=== PATIENT | male | born 1960 ===

== ENCOUNTER 2017-03-28 12:31 | Inpatient (IN) | payer BC ==
[~2017-03-28] VITALS: Ht 167.6 cm; Wt 127.1 kg
--- NOTE | 2017-03-28 12:55 | ER Report ---
History and Physical Time Seen By MD: 12:55 Hx. 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 Patient states that he's been having problems past 4 weeks. He states he tried [id number] medications to help with this but nothing seems to help. Patient denies having any fevers, chills, nausea, vomiting or diarrhea. Patient states that he's been eating and drinking well until recently. States that he's been feeling very weak for the last couple days. He states everything to get worse when he arrived in [place]. He states that time he got here to [place] that he needed to stop and be checked out. He states that aside from the over- the-counter medication has not taken any medication for this. REVIEW OF SYSTEMS: Respiratory: As noted above Cardiovascular: No chest pain, no palpitations. Gastrointestinal: No vomiting, no abdominal pain. Musculoskeletal: No back pain. Allergies: Coded Allergies: No Known Drug Allergies (Unverified , 03/28/17) Home Meds Unable to Obtain Active Prescriptions or Reported Meds Past Medical/Surgical History Patient has a past medical history of hypertension, COPD, diabetes. Patient has surgical history of left fifth finger surgery. Reviewed Nurses Notes: Yes Constitutional Vital Sign - Last 24 Hours 03/28/17 03/28/17 03/28/17 03/28/17 12:36 12:39 12:39 12:40 Temp 98.5 Pulse 124 124 Resp 40 B/P (MAP) 155/141 (146) 121/92 121/92 (102) Pulse Ox 66 66 72 O2 Delivery Room Air O2 Flow Rate 15.0 03/28/17 03/28/17 03/28/17 03/28/17 12:41 12:46 12:51 12:52 Pulse 119 118 119 Pulse Ox 94 94 95 O2 Flow Rate 3.0 03/28/17 03/28/17 03/28/17 03/28/17 12:56 13:00 13:01 13:04 Pulse 122 122 120 B/P (MAP) 108/87 (94) Pulse Ox 91 91 03/28/17 03/28/17 03/28/17 03/28/17 13:04 13:06 13:11 13:21 Pulse 119 120 119 Pulse Ox 91 91 93 O2 Delivery Nasal Cannula O2 Flow Rate 4.0 03/28/17 03/28/17 03/28/17 03/28/17 13:51 13:56 14:30 15:00 Pulse 121 124 Resp 31 14 B/P (MAP) 114/71 (85) 106/72 (83) Pulse Ox 92 91 03/28/17 03/28/17 03/28/17 03/28/17 15:30 15:35 15:57 16:00 Pulse ??? 110 B/P (MAP) 114/74 (87) 119/75 (90) Pulse Ox 92 03/28/17 03/28/17 03/28/17 03/28/17 16:30 16:35 16:40 16:45 Pulse ??? 116 112 B/P (MAP) 122/53 (76) Pulse Ox 86 89 03/28/17 03/28/17 03/28/17 03/28/17 16:49 16:50 16:55 17:00 Pulse 111 110 109 106 B/P (MAP) 108/69 (82) Pulse Ox 92 91 92 91 Intake and Output 03/28/17 03/28/17 03/29/17 15:00 23:00 07:00 Intake Total 500 ml Balance 500 ml Physical Exam General Appearance: The patient is alert, has no immediate need for airway protection and no current signs of toxicity. ENT: Tympanic membranes are pearly-servin, auditory canals are patent, mucous membranes are moist. Respiratory: Chest is non tender, lungs are dense throughout to auscultation. Cardiac: regular rhythm. Patient is tachycardic. Gastrointestinal: Abdomen is soft and non tender, no masses, bowel sounds normal. Musculoskeletal: Neck: Neck is supple and non tender. Extremities have full range of motion and are non tender. Skin: No rashes or lesions. DIFFERENTIAL DIAGNOSIS: After history and physical exam differential diagnosis was considered for influenza, pneumonia, sepsis, pulmonary embolism. Medical Decision Making Data Points Result Diagram: 03/28/17 1304 03/28/17 1304 Laboratory Hematology Test 03/28/17 13:04 Red Blood Count 6.76 M/uL (4.00-5.60) Mean Corpuscular Volume 88.7 fL (80.0-96.0) Mean Corpuscular Hemoglobin 28.3 pg (26.0-33.0) Mean Corpuscular Hemoglobin Concent 31.9 g/dL (32.0-36.0) Red Cell Distribution Width 17.1 % (11.5-14.5) Mean Platelet Volume 8.0 fL (7.2-11.1) Neutrophils (%) (Auto) 75.5 % (39.4-72.5) Lymphocytes (%) (Auto) 16.2 % (17.6-49.6) Monocytes (%) (Auto) 7.1 % (4.1-12.4) Eosinophils (%) (Auto) 0.6 % (0.4-6.7) Basophils (%) (Auto) 0.6 % (0.3-1.4) Nucleated RBC Relative Count (auto) 0.1 /100WBC Neutrophils # (Auto) 8.1 K/uL (2.0-7.4) Lymphocytes # (Auto) 1.7 K/uL (1.3-3.6) Monocytes # (Auto) 0.8 K/uL (0.3-1.0) Eosinophils # (Auto) 0.1 K/uL (0.0-0.5) Basophils # (Auto) 0.1 K/uL (0.0-0.1) Nucleated RBC Absolute Count (auto) 0.01 K/uL D-Dimer Quantitative (PE/DVT) 1.03 ug/ml (0-0.50) Sodium Level 135 mmol/L (137-145) Potassium Level 5.3 mmol/L (3.5-5.0) Chloride Level 94 mmol/L (98-107) Carbon Dioxide Level 29 mmol/L (22-30) Blood Urea Nitrogen 39 mg/dl (9-21) Creatinine 1.70 mg/dl (0.66-1.25) Glomerular Filtration Rate Calc 41.9 Random Glucose 242 mg/dl (75-110) Lactate 3.4 mmol/L (0.7-2.1) Calcium Level 9.7 mg/dl (8.4-10.2) Total Bilirubin 0.8 mg/dl (0.2-1.3) Aspartate Amino Transf (AST/SGOT) 20 U/L (0-35) Alanine Aminotransferase (ALT/SGPT) 39 U/L (0-56) Alkaline Phosphatase 110 U/L (0-126) Troponin I 0.019 ng/ml B-Type Natriuretic Peptide 84 pg/ml (0-100) Total Protein 6.8 gm/dl (6.3-8.2) Albumin 3.5 g/dl (3.5-5.0) Influenza Virus Type A (PCR) Negative (NEGATIVE) Influenza Virus Type B (PCR) Negative (NEGATIVE) Chemistry Test 03/28/17 13:04 White Blood Count 10.8 k/uL (4.5-11.0) Red Blood Count 6.76 M/uL (4.00-5.60) Hemoglobin 19.1 g/dL (14.0-18.0) Hematocrit 59.9 % (42.0-52.0) Mean Corpuscular Volume 88.7 fL (80.0-96.0) Mean Corpuscular Hemoglobin 28.3 pg (26.0-33.0) Mean Corpuscular Hemoglobin Concent 31.9 g/dL (32.0-36.0) Red Cell Distribution Width 17.1 % (11.5-14.5) Platelet Count 283 K/uL (150-450) Mean Platelet Volume 8.0 fL (7.2-11.1) Neutrophils (%) (Auto) 75.5 % (39.4-72.5) Lymphocytes (%) (Auto) 16.2 % (17.6-49.6) Monocytes (%) (Auto) 7.1 % (4.1-12.4) Eosinophils (%) (Auto) 0.6 % (0.4-6.7) Basophils (%) (Auto) 0.6 % (0.3-1.4) Nucleated RBC Relative Count (auto) 0.1 /100WBC Neutrophils # (Auto) 8.1 K/uL (2.0-7.4) Lymphocytes # (Auto) 1.7 K/uL (1.3-3.6) Monocytes # (Auto) 0.8 K/uL (0.3-1.0) Eosinophils # (Auto) 0.1 K/uL (0.0-0.5) Basophils # (Auto) 0.1 K/uL (0.0-0.1) Nucleated RBC Absolute Count (auto) 0.01 K/uL D-Dimer Quantitative (PE/DVT) 1.03 ug/ml (0-0.50) Glomerular Filtration Rate Calc 41.9 Lactate 3.4 mmol/L (0.7-2.1) Calcium Level 9.7 mg/dl (8.4-10.2) Total Bilirubin 0.8 mg/dl (0.2-1.3) Aspartate Amino Transf (AST/SGOT) 20 U/L (0-35) Alanine Aminotransferase (ALT/SGPT) 39 U/L (0-56) Alkaline Phosphatase 110 U/L (0-126) Troponin I 0.019 ng/ml B-Type Natriuretic Peptide 84 pg/ml (0-100) Total Protein 6.8 gm/dl (6.3-8.2) Albumin 3.5 g/dl (3.5-5.0) Influenza Virus Type A (PCR) Negative (NEGATIVE) Influenza Virus Type B (PCR) Negative (NEGATIVE) Coagulation Test 03/28/17 13:04 D-Dimer Quantitative (PE/DVT) 1.03 ug/ml EKG/Imaging EKG Interpretation 12 lead EKG: Rhythm: Sinus tachycardia with ventricular rate of 117 bpm [place]: Right axis deviation QRS: Incomplete right bundle branch block ST segments: normal Imaging EXAMINATION: Chest radiographs 2 views HISTORY: Respiratory distress. COMPARISON: None. FINDINGS: PA and lateral views of the chest are submitted. Lines/tubes: None. Lungs/pleura: There is near-complete opacification of the left hemithorax with apical cap. There is tapering of the left mainstem bronchus. Right lung is clear. Heart: Negative. Mediastinum: There is no mediastinal shift. Bony structures/body wall: Negative. IMPRESSION: Near-complete opacification of the left hemithorax could be due to pneumonia or lung mass, with associated pleural effusion. Report Dictated By: Neena Martinez MD at 03/28/2017 2:12 PM Report E-Signed By: Neena Martinez MD at 03/28/2017 2:14 PM EXAMINATION: CTA of the chest with IV contrast HISTORY: Shortness of breath. Elevated d-dimer. TECHNIQUE: Pulmonary embolus protocol - Thin axial CT images of the chest were obtained with IV contrast during maximal pulmonary arterial opacification. Reconstruction of the source data includes multiplanar 2D coronal and sagittal reconstructed images, and 3D coronal and sagittal MIP images. [employer] images have been stored on PACS. One of the following dose optimization techniques was utilized in the performance of this exam: Automated exposure control; adjustment of the mA and/ or kV according to the patient's size; or use of an iterative reconstruction technique. Specific details can be referenced in the facility's radiology CT exam operational policy. Contrast: 100 mL of IV Isovue-370. COMPARISON: Chest radiograph of earlier today. FINDINGS: Pulmonary arteries: The pulmonary arteries are well opacified, without suspicious filling defect. Heart, aorta, and great vessels: Normal caliber thoracic aorta, without aneurysm or dissection. Normal heart size. No pericardial effusion. Lungs and pleura: There is near-complete consolidation of the left lung. The lower lobe and lingula appear atelectatic with volume loss and normal parenchymal enhancement. The consolidated left upper lobe however is more heterogeneous in appearance with decreased parenchymal enhancement. There is ill -defined soft tissue attenuation along the left hilum and central aspect of the left upper lobe, suspicious for an obstructing mass lesion. Margins are poorly defined, obscured against the adjacent consolidated lung. The left mainstem bronchus is significantly narrowed by soft tissue attenuation or intraluminal material. There is nonopacification of the lobar and segmental bronchi to the upper and lower lobes which could be occluded by intraluminal material or soft tissue. There is only a small amount of aerated left upper lobe superiorly. There is a large left pleural effusion surrounding the consolidated left lung. The right lung is clear. No focal consolidation on the right. Right-sided airways are patent. No pleural effusion on the right side. Mediastinum and cisco: There is ill-defined soft tissue attenuation extending along the left hilum, suspicious for malignancy. There are scattered subcentimeter lymph nodes elsewhere in the mediastinum and right hilum, without any well-defined isolated enlarged lymph nodes. Visualized upper abdomen: Unremarkable. Chest wall: Negative. Bones: No acute osseous findings or suspicious focal osseous lesions. IMPRESSION: 1. No evidence of pulmonary embolism. 2. There is near-complete consolidation of the left lung. There is heterogeneous soft tissue attenuation in the central aspect of the left upper lobe extending to the hilum, concerning for an underlying mass lesion. This is poorly defined and partially obscured by surrounding pulmonary consolidation, which precludes accurate size measurement. Findings overall are concerning for malignancy with a likely component of postobstructive pneumonitis. Bronchoscopy could be performed for further evaluation and potential tissue sampling. 3. Large left pleural effusion surrounding the consolidated left lung. 4. The right lung is clear. Findings were discussed with SAMUEL RAMOS at 03/28/2017 2:46 PM. Report Dictated By: Iván Pitt MD at 03/28/2017 2:31 PM Report E-Signed By: Iván Pitt MD at 03/28/2017 2:47 PM Examination: CHEST SINGLE AP Comparison: Earlier the same day. History: Post-thoracentesis. Findings: Significantly decreased left pleural effusion following thoracentesis. Left lung aeration is significantly improved with persistent patchy consolidation versus volume loss. Mild peribronchial thickening as before. No pneumothorax. Visualized portions of the cardiac and hilar contour are within normal limits. Osseous structures are intact. IMPRESSION: 1. Significantly decreased left pleural effusion following thoracentesis. 2. Improved left lung aeration with residual multifocal volume loss versus consolidation. Continued follow-up to document complete resolution and exclude the presence of an underlying mass is recommended. 3. No pneumothorax. Report Dictated By: Rafael De Anda MD at 03/28/2017 6:00 PM Report E-Signed By: Rafael De Anda MD at 03/28/2017 6:02 PM ED Course/Re-evaluation ED Course Patient was admitted exam room, history and physical were obtained. Differential diagnoses were considered. On examination lungs are extremely diminished in left lung. A CBC, CMP, troponin, EKG, chest x-ray were done. Chest x-ray shows considerable consolidation in the left lung. CBC showed no elevated white count, CMP showed creatinine of 1.7, elevated potassium of 5.3. A d-dimer was done which was 1.04. A CT pulmonary angiogram was done. That showed no pulmonary emboli, however did show a perihilar mass in the left lung which is compressing on the left mainstem bronchus and large pleural effusion. I discussed the case with pulmonology at [facility]. She states that patient should follow-up for bronchoscopy in [place]. She states that if the pleural effusion was large enough that we could go ahead and drain it. I discussed the case with Dr. Letty Decker, hospitalist, who felt that there is nothing we can be done at the hospital here. I spoke with Dr. Leonardo , dental surgeon, who said that he could drain it but was unsure if that would help. Patient was evaluated by Dr. Cook, ER physician, who then spoke with Dr. Leonardo. Dr. Leonardo said that if the hospitalist would admit he would be more than happy to come in and do a pleurocentesis. I spoke with Dr. Letty Decker who agreed to accept the patient for admission. Dr. Leonardo did come in and performed the pleurocentesis. Patient was admitted to the floor under the care of Dr. Letty Decker. Patient verbalized understanding and agreement with plan. 03/28/2017 3:23:26 pm discussed the findings with patient, patient states that he would prefer to continue with his trip. I will go ahead and discuss with pulmonology whether this would be a crowley move. Patient is satting well on 4 L of oxygen, could possibly get him set up with home oxygen and follow-up in [place] on his return. Decision to Disposition Date: Mar 28, 2017 Decision to Disposition Time: 18:00 Depart Departure Latest Vital Signs Vital Signs Date Time Temp Pulse Resp B/P (MAP) Pulse Ox O2 Delivery O2 Flow Rate FiO2 03/28/17 17:00 106 108/69 (82) 91 03/28/17 13:56 14 03/28/17 13:04 Nasal Cannula 4.0 03/28/17 12:39 98.5 Impression: Primary Impression: Pulmonary consolidation determined by examination Additional Impressions: Pleural effusion Hypoxia Condition: Condition Unchanged Disposition: Admitted from ER New Scripts Unable to Obtain Active Prescriptions or Reported Meds Departure Forms: ER Transition Record, Home Oxygen, Nebulizer RX, Home Oxygen Company Chosen by Patient: [employer] Medical Equipment-Oxygen: Oxygen Concentrator, Portable Oxygen Gas Reason for Use/Diagnosis: Pleural effusion, left lung consolidation, hypoxia Start Date of the Order: Mar 28, 2017 Dosage or Concentration (if applicable) - LPM: 4 Route of Administration (if applicable): Nasal Cannula Frequency of Use: Continuous Duration Home O2 Required: 99 Duration Units: Months Room Air Oxygen Saturation: 66 ER Prescribing Physician's Name: Samuel Ramos NPI Numbers for Local ER MDs: Richard [id number] Medications Reconciliation, Patient Portal Information Problem Qualifiers SAMUEL RAMOS Mar 28, 2017 12:55
[2017-03-28] MEDS ORDERED: NS(*) 0.9% 1000 ML BAG 1,000 ML IV ONE (13:01)
[2017-03-28] MEDS ORDERED: ALBUTEROL/IPRATROPIUM 3 ML NEB NEB ONE (13:05)
[2017-03-28 13:10] LABS: PLATELET COUNT, AUTOMATED 283 K/uL (150-450)
--- NOTE | 2017-03-28 13:30 | EKG ---
FACILITY: [facility] PATIENT NAME: SRUTHI SINGH : [id number] MR: [id number] V: [id number] EXAM DATE: ORDERING PHYSICIAN: YARELI MENESES TECHNOLOGIST: GABY Keyes Reason : SOB Blood Pressure : / mmHG Vent. Rate : 117 BPM Atrial Rate : 117 BPM P-R Int : 104 ms QRS Dur : 098 ms QT Int : 444 ms P-R-T Axes : 000 123 050 degrees QTc Int : 619 ms Sinus tachycardia Right axis deviation Incomplete right bundle branch block Right ventricular hypertrophy Abnormal ECG No previous ECGs available Confirmed by GUY ROMAN ([id number]) on 03/28/2017 8:20:09 PM Referred By: ESTEBAN Confirmed By:GUY ROMAN
[2017-03-28] MEDS ORDERED: IOPAMIDOL 76% 100 ML INFUS BTL 100 ML ONE (13:48)
[2017-03-28] MEDS ORDERED: NS 0.9% 20 ML SDV 60 ML ONE (13:49)
--- NOTE | 2017-03-28 14:18 | RADIOLOGY IMAGING REPORT ---
FACILITY: [facility] [place] PATIENT NAME: Sylvia Blackwood : 1960 MR: [id number] V: [id number] EXAM DATE: ORDERING PHYSICIAN: YARELI MENESES TECHNOLOGIST: Location: [facility] [place] Patient: Sylvia Blackwood : 1960 Visit/Account:[id number] Date of Sevice: 03/28/2017 EXAMINATION: Chest radiographs 2 views HISTORY: Respiratory distress. COMPARISON: None. FINDINGS: PA and lateral views of the chest are submitted. Lines/tubes: None. Lungs/pleura: There is near-complete opacification of the left hemithorax with apical cap. There is tapering of the left mainstem bronchus. Right lung is clear. Heart: Negative. Mediastinum: There is no mediastinal shift. Bony structures/body wall: Negative. IMPRESSION: Near-complete opacification of the left hemithorax could be due to pneumonia or lung mass, with assoc iated pleural effusion. Report Dictated By: Neena Martinez MD at 03/28/2017 2:12 PM Report E-Signed By: Neena Martinez MD at 03/28/2017 2:14 PM WSN:[id number]
--- NOTE | 2017-03-28 14:51 | RADIOLOGY IMAGING REPORT ---
[place] [facility] [place] Sylvia Blackwood : 1960 MR: [id number] V: [id number] EXAM DATE: ORDERING PHYSICIAN: YARELI MENESES TECHNOLOGIST: Location: [facility] [place] Patient: Sylvia Blackwood : 1960 Visit/Account:[id number] Date of Sevice: 03/28/2017 EXAMINATION: CTA of the chest with IV contrast HISTORY: Shortness of breath. Elevated d-dimer. TECHNIQUE: Pulmonary embolus protocol - Thin axial CT images of the chest were obtained with IV con trast during maximal pulmonary arterial opacification. Reconstruction of the source data includes mul tiplanar 2D coronal and sagittal reconstructed images, and 3D coronal and sagittal MIP images. Repres entative images have been stored on PACS. One of the following dose optimization techniques was utilized in the performance of this exam: Autom ated exposure control; adjustment of the mA and/or kV according to the patient's size; or use of an i terative reconstruction technique. Specific details can be referenced in the facility's radiology C T exam operational policy. Contrast: 100 mL of IV Isovue-370. COMPARISON: Chest radiograph of earlier today. FINDINGS: Pulmonary arteries: The pulmonary arteries are well opacified, without suspicious filling defect. Heart, aorta, and great vessels: Normal caliber thoracic aorta, without aneurysm or dissection. Norm al heart size. No pericardial effusion. Lungs and pleura: There is near-complete consolidation of the left lung. The lower lobe and lingula appear atelectatic with volume loss and normal parenchymal enhancement. The consolidated left upper l obe however is more heterogeneous in appearance with decreased parenchymal enhancement. There is ill- defined soft tissue attenuation along the left hilum and central aspect of the left upper lobe, suspi cious for an obstructing mass lesion. Margins are poorly defined, obscured against the adjacent conso lidated lung. The left mainstem bronchus is significantly narrowed by soft tissue attenuation or intraluminal mater ial. There is nonopacification of the lobar and segmental bronchi to the upper and lower lobes which could be occluded by intraluminal material or soft tissue. There is only a small amount of aerated le ft upper lobe superiorly. There is a large left pleural effusion surrounding the consolidated left anatoly ng. The right lung is clear. No focal consolidation on the right. Right-sided airways are patent. No pleu ral effusion on the right side. Mediastinum and cisco: There is ill-defined soft tissue attenuation extending along the left hilum, s uspicious for malignancy. There are scattered subcentimeter lymph nodes elsewhere in the mediastinum and right hilum, without any well-defined isolated enlarged lymph nodes. Visualized upper abdomen: Unremarkable. Chest wall: Negative. Bones: No acute osseous findings or suspicious focal osseous lesions. IMPRESSION: 1. No evidence of pulmonary embolism. 2. There is near-complete consolidation of the left lung. There is heterogeneous soft tissue attenuat ion in the central aspect of the left upper lobe extending to the hilum, concerning for an underlying mass lesion. This is poorly defined and partially obscured by surrounding pulmonary consolidation, w hich precludes accurate size measurement. Findings overall are concerning for malignancy with a likel y component of postobstructive pneumonitis. Bronchoscopy could be performed for further evaluation an d potential tissue sampling. 3. Large left pleural effusion surrounding the consolidated left lung. 4. The right lung is clear. Findings were discussed with YARELI MENESES at 03/28/2017 2:46 PM. Report Dictated By: Iván Pitt MD at 03/28/2017 2:31 PM Report E-Signed By: Iván Pitt MD at 03/28/2017 2:47 PM WSN:[id number]
--- NOTE | 2017-03-28 17:42 | Post Operative Progress Note ---
Post Operative Progress Note Date: Mar 28, 2017 Time: 17:40 Surgeon: leigha Anesthesia: local Pre-Op Diagnosis: left plueral effusion Post-Op Diagnosis: same Procedure(s): left thoracentesis Specimen Removed:(May be N/A): 1750 cc pleural fluid TOD FARIA MD Mar 28, 2017 17:42
--- NOTE | 2017-03-28 17:49 | General Surgery Consultation ---
History of Present Illness Requesting Physician dr hanson Reason for Consult left pleural effusion Chief Complaint short of breath History of Present Illness 56 yo male with a history of diabetes who smokes 1 and a half packs a day presents with a one month history of shortness of breath. 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 he has a cough with sputum production. no blood, no fever. seen in ed ct suggest a left lung mass with occlusion of the bronchus and large pleural effusion. History Home Meds Unable to Obtain Active Prescriptions or Reported Meds Allergies: Coded Allergies: No Known Drug Allergies (Unverified , 03/28/17) Review of Systems Cardiovascular: No Chest Pain, No Palpitations, No Orthostatic Hypotension, No Other Gastrointestinal: No Nausea, No Vomiting, No Diarrhea, No Dysphagia, No Constipation, No Early Satiety, No Hematemesis, No Hematochezia, No Melena, No Abdominal Pain, No Other Genitourinary: No Dysuria, No Hematuria, No Urinary Incontinence, No Other Musculoskeletal: No Pain, No Sprain, No Strain, No Impaired Mobility, No Other Other he has diabetes Exam Vital Signs Vital Signs Date Time Temp Pulse Resp B/P (MAP) Pulse Ox O2 Delivery O2 Flow Rate FiO2 03/28/17 17:05 107 91 03/28/17 17:00 108/69 (82) 03/28/17 13:56 14 03/28/17 13:04 Nasal Cannula 4.0 03/28/17 12:39 98.5 General Appearance: Alert, Awake Cardiovascular: Regular Rate and Rhythm Respiratory: Other (no breath sound on the left) Medical Decision Making Data Points Result Diagram: 03/28/17 1304 03/28/17 1304 Assessment and Plan Problems: (1) Bronchial obstruction Assessment & Plan: will do a thoracentesis to obtain fluid for analysis and try to improve lung function. pt appears he will require a bronchoscopy to obtain a diagnosis. he appears to have an obstructing tumor in the bronchus. probably will require a pet scan to look for mets. how much of this workup is done here or back home in [place] is up to the patient. Copies to: TOD FARIA MD Venous Thromboembolism Antithrombotics Is Pt On Any Antithrombotics?: No TOD FARIA MD Mar 28, 2017 17:49
--- NOTE | 2017-03-28 18:06 | RADIOLOGY IMAGING REPORT ---
FACILITY: [facility] PATIENT NAME: Sylvia Blackwood : 1960 MR: [id number] V: [id number] EXAM DATE: ORDERING PHYSICIAN: TOD FARIA TECHNOLOGIST: Location: [facility] [place] Patient: Sylvia Blackwood : 1960 Visit/Account:[id number] Date of Sevice: 03/28/2017 Examination: CHEST SINGLE AP Comparison: Earlier the same day. History: Post-thoracentesis. Findings: Significantly decreased left pleural effusion following thoracentesis. Left lung aeration i s significantly improved with persistent patchy consolidation versus volume loss. Mild peribronchial thickening as before. No pneumothorax. Visualized portions of the cardiac and hilar contour are withi n normal limits. Osseous structures are intact. IMPRESSION: 1. Significantly decreased left pleural effusion following thoracentesis. 2. Improved left lung aeration with residual multifocal volume loss versus consolidation. Continued f ollow-up to document complete resolution and exclude the presence of an underlying mass is recommende d. 3. No pneumothorax. Report Dictated By: Rafael De Anda MD at 03/28/2017 6:00 PM Report E-Signed By: Rafael De Anda MD at 03/28/2017 6:02 PM WSN:[id number]
[2017-03-28 18:16] VITALS: BP 118/35
[2017-03-28] MEDS ORDERED: PIPERACILLIN/TAZO*3.375GM VIAL 3.375 GM in NS(*) 0.9% 100 ML ADDVANT BAG 100 ML IVPB SCH (20:05)
[2017-03-28] MEDS ORDERED: ACETAMINOPHEN 325 MG TAB PO PRN (20:10)
[2017-03-28] MEDS ORDERED: INFLUENZA VIRUS VAC 0.5 ML SYR IM ONLY ONE (20:10)
--- NOTE | 2017-03-28 20:24 | RADIOLOGY IMAGING REPORT ---
FACILITY: [facility] PATIENT NAME: Sylvia Blackwood : 1960 MR: [id number] V: [id number] EXAM DATE: ORDERING PHYSICIAN: DIONNA ROMAN TECHNOLOGIST: Location: Patient: Sylvia Blackwood : 1960 Visit/Account:[id number] Date of Sevice: 03/28/2017 EXAMINATION: Portable AP Chest HISTORY: Increased O2 demands. COMPARISON: Prior chest radiograph of earlier today, performed post thoracentesis. FINDINGS: There is persistent dense consolidation in the perihilar left lung, with additional patchy infiltrate or atelectasis in the lower left lung. Residual small left pleural effusion following thoracentesis. No pneumothorax. There are diffusely increased interstitial markings bilaterally, which could reflect interstitial ian ma. Stable cardiomediastinal silhouette. IMPRESSION: 1. Persistent consolidation in the perihilar left lung with patchy infiltrate or atelectasis in the l ower left lung. 2. Residual small left pleural effusion following thoracentesis. No pneumothorax. 3. Diffuse increased interstitial opacities bilaterally may represent developing pulmonary edema. Report Dictated By: Iván Pitt MD at 03/28/2017 8:14 PM Report E-Signed By: Iván Pitt MD at 03/28/2017 8:18 PM WSN:[id number]
--- NOTE | 2017-03-28 20:35 | History & Physical ---
History of Present Illness Chief Complaint Shortness of breath. 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 The patient states he thought he had a cold so was taking OTC cold medicines. He was not improving. Today his shortness of breath worsened and he presented to [facility] ER for evaluation. The patient denies fever or chills. He has had a dry cough. He states he has lost some weight over the past 4 weeks but can 't quantify how much. He states his appetite is poor. He denies chest pain. He smokes 1 to 1-1/2 packs of cigarettes daily. He has not had previous pulmonary issues. He has not required oxygen in the past. He does have type II DM and takes oral medications for this but does not know the names of them except for metformin. 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 (2) HTN (hypertension) Status: Acute (3) Type II diabetes mellitus Status: Chronic Home Meds Unable to Obtain Active Prescriptions or Reported Meds Allergies: Coded Allergies: No Known Drug Allergies (Unverified , 03/28/17) Patient History: FH: type 1 diabetes mellitus CHILD Other Social/Family Hx . Has one son. Drives a commercial truck. Hx Smoking: Yes Smoking Status: Heavy Tobacco Smoker Caffeine Intake: Soda Caffeine/Cups Per Day: 5-6/month Hx Alcohol Use: No Hx Substance Use Disorder: Yes Social Drug Use: Former Social Drugs: Marijuana History of IV Drug Use: No Review of Systems Constitutional: No Fever, No Chills Neurological: Weakness Eyes: No Vision Change ENT: Other (Missing teeth, remaining teeth in poor repair.) Cardiovascular: No Chest Pain Respiratory: Shortness of Breath, Cough Gastrointestinal: No Nausea, No Vomiting, Diarrhea Genitourinary: No Dysuria Musculoskeletal: No Pain Psychiatric: No Depression Exam Vital Signs Vital Signs Date Time Temp Pulse Resp B/P (MAP) Pulse Ox O2 Delivery O2 Flow Rate FiO2 03/28/17 18:25 58 03/28/17 18:16 99.0 109 24 118/35 (62) High-Flow Nasal Cannula 4.0 General Appearance: Alert, Awake, No Acute Distress, Afebrile Neuro: No Gross deficits Eyes: PERRLA ENT: Other (Missing many teeth. Remaining teeth in poor repair.) Neck: No Masses Cardiovascular: Other (Tachy, regular) Respiratory: Other (No significantly audible lung sounds on left. R lung with occasional wheeze.) GI: Abd Soft and Non-Tender (Obese.) Extremities: Warm, Perfused, Other (1-2+ edema, both LE. Chronic venous stasis changes.) Integumentary: Other (Chronic venous stasis changes.) Psych: Appropriate Mood & Affect Medical Decision Making Data Points Result Diagram: 03/28/17 1304 03/28/17 1304 Item Value Date Time D-Dimer Quantitative (PE/DVT) 1.03 ug/ml H 03/28/17 1304 Lactate 3.4 mmol/L H 03/28/17 1304 Lactate 1.2 mmol/L 03/28/17 2032 Calcium Level 9.7 mg/dl 03/28/17 1304 Total Bilirubin 0.8 mg/dl 03/28/17 1304 Aspartate Amino Transf (AST/SGOT) 20 U/L 03/28/17 1304 Alanine Aminotransferase (ALT/SGPT) 39 U/L 03/28/17 1304 Alkaline Phosphatase 110 U/L 03/28/17 1304 B-Type Natriuretic Peptide 84 pg/ml 03/28/17 1304 Total Protein 6.8 gm/dl 03/28/17 1304 Albumin 3.5 g/dl 03/28/17 1304 Troponin I 0.019 ng/ml 03/28/17 1304 Influenza Virus Type A (PCR) Negative 03/28/17 1304 Influenza Virus Type B (PCR) Negative 03/28/17 1304 Blood and pleural fluid cultures pending. EKG / Imaging EKG Interpretation FACILITY: [facility] PATIENT NAME: SRUTHI SINGH : [id number] MR: [id number] V: [id number] EXAM DATE: ORDERING PHYSICIAN: YARELI MENESES TECHNOLOGIST: GABY Keyes Reason : SOB Blood Pressure : / mmHG Vent. Rate : 117 BPM Atrial Rate : 117 BPM P-R Int : 104 ms QRS Dur : 098 ms QT Int : 444 ms P-R-T Axes : 000 123 050 degrees QTc Int : 619 ms Sinus tachycardia Right axis deviation Incomplete right bundle branch block Right ventricular hypertrophy Abnormal ECG No previous ECGs available Confirmed by GUY ROMAN ([id number]) on 03/28/2017 8:20:09 PM Referred By: ESTEBAN Confirmed By:GUY ROMAN [id number] T: YOLANDE/ Imaging FACILITY: [facility] PATIENT NAME: Sruthi Singh : 1960 MR: [id number] V: [id number] EXAM DATE: [id number] ORDERING PHYSICIAN: YARELI MENESES TECHNOLOGIST: Location: [facility] [place] Patient: Sruthi Singh : 1960 Visit/Account:[id number] Date of Sevice: 03/28/2017 EXAMINATION: Chest radiographs 2 views HISTORY: Respiratory distress. COMPARISON: None. FINDINGS: PA and lateral views of the chest are submitted. Lines/tubes: None. Lungs/pleura: There is near-complete opacification of the left hemithorax with apical cap. There is tapering of the left mainstem bronchus. Right lung is clear. Heart: Negative. Mediastinum: There is no mediastinal shift. Bony structures/body wall: Negative. IMPRESSION: Near-complete opacification of the left hemithorax could be due to pneumonia or lung mass, with associated pleural effusion. Report Dictated By: Neena Martinez MD at 03/28/2017 2:12 PM Report E-Signed By: Neena Martinez MD at 03/28/2017 2:14 PM WSN:[id number] FACILITY: [facility] PATIENT NAME: Sruthi Singh : 1960 MR: [id number] V: [id number] EXAM DATE: [id number] ORDERING PHYSICIAN: YARELI MENESES TECHNOLOGIST: Location: [facility] [place] Patient: Sruthi Singh : 1960 Visit/Account:[id number] Date of Sevice: 03/28/2017 EXAMINATION: CTA of the chest with IV contrast HISTORY: Shortness of breath. Elevated d-dimer. TECHNIQUE: Pulmonary embolus protocol - Thin axial CT images of the chest were obtained with IV contrast during maximal pulmonary arterial opacification. Reconstruction of the source data includes multiplanar 2D coronal and sagittal reconstructed images, and 3D coronal and sagittal MIP images. Literacy Education Professor images have been stored on PACS. One of the following dose optimization techniques was utilized in the performance of this exam: Automated exposure control; adjustment of the mA and/ or kV according to the patient's size; or use of an iterative reconstruction technique. Specific details can be referenced in the facility's radiology CT exam operational policy. Contrast: 100 mL of IV Isovue-370. COMPARISON: Chest radiograph of earlier today. FINDINGS: Pulmonary arteries: The pulmonary arteries are well opacified, without suspicious filling defect. Heart, aorta, and great vessels: Normal caliber thoracic aorta, without aneurysm or dissection. Normal heart size. No pericardial effusion. Lungs and pleura: There is near-complete consolidation of the left lung. The lower lobe and lingula appear atelectatic with volume loss and normal parenchymal enhancement. The consolidated left upper lobe however is more heterogeneous in appearance with decreased parenchymal enhancement. There is ill -defined soft tissue attenuation along the left hilum and central aspect of the left upper lobe, suspicious for an obstructing mass lesion. Margins are poorly defined, obscured against the adjacent consolidated lung. The left mainstem bronchus is significantly narrowed by soft tissue attenuation or intraluminal material. There is nonopacification of the lobar and segmental bronchi to the upper and lower lobes which could be occluded by intraluminal material or soft tissue. There is only a small amount of aerated left upper lobe superiorly. There is a large left pleural effusion surrounding the consolidated left lung. The right lung is clear. No focal consolidation on the right. Right-sided airways are patent. No pleural effusion on the right side. Mediastinum and cisco: There is ill-defined soft tissue attenuation extending along the left hilum, suspicious for malignancy. There are scattered subcentimeter lymph nodes elsewhere in the mediastinum and right hilum, without any well-defined isolated enlarged lymph nodes. Visualized upper abdomen: Unremarkable. Chest wall: Negative. Bones: No acute osseous findings or suspicious focal osseous lesions. IMPRESSION: 1. No evidence of pulmonary embolism. 2. There is near-complete consolidation of the left lung. There is heterogeneous soft tissue attenuation in the central aspect of the left upper lobe extending to the hilum, concerning for an underlying mass lesion. This is poorly defined and partially obscured by surrounding pulmonary consolidation, which precludes accurate size measurement. Findings overall are concerning for malignancy with a likely component of postobstructive pneumonitis. Bronchoscopy could be performed for further evaluation and potential tissue sampling. 3. Large left pleural effusion surrounding the consolidated left lung. 4. The right lung is clear. Findings were discussed with YARELI MENESES at 03/28/2017 2:46 PM. Report Dictated By: Iván Pitt MD at 03/28/2017 2:31 PM Report E-Signed By: Iván Pitt MD at 03/28/2017 2:47 PM WSN:[id number] Pre-Admit Course Medical Record Review: Yes Assessment and Plan Problems: (1) Postobstructive pneumonia Status: Acute Assessment & Plan: Near complete consolidation of the L lung. Will start on Zosyn IV. (2) Lung mass Status: Acute Assessment & Plan: On CTA the patient has heterogeneous soft tissue attenuation in the central aspect of the left upper lobe extending to the hilum , concerning for an underlying mass lesion. He will need further evaluation. Will need to discuss options. (3) Pleural effusion Status: Acute Assessment & Plan: Dr. Leonardo drained 1700cc. Fluid sent for analysis including cytology. (4) Hyperkalemia Status: Acute Assessment & Plan: Mild. Will hydrate and recheck BMP in the am. (5) Type II diabetes mellitus Status: Chronic Assessment & Plan: The patient is on several meds but can't remember his meds or doses. Will need to contact [facility] in [place], [place] for his med list in the am. (6) HTN (hypertension) Status: Acute Assessment & Plan: Will need to get his medications as noted above. (7) Elevated lactic acid level Status: Acute Assessment & Plan: Resolved with hydration. Time Spent on Plan of Care: < 30 min Venous Thromboembolism Antithrombotics Is Pt On Any Antithrombotics?: No Exam Sepsis Risk: Severe Sepsis Risk Problem Qualifiers (1) HTN (hypertension): Hypertension type: essential hypertension Qualified Codes: I10 - Essential ( primary) hypertension PAMELA ACEVES MD Mar 28, 2017 20:35
[2017-03-28] MEDS: NS(*) 0.9% 1000 ML BAG 1,000 ML IV PRN (20:47)
--- NOTE | 2017-03-28 22:49 | Miscellaneous Provider Note ---
Miscellaneous Provider Note Note More difficulty maintaining O2 sats this evening despite increasing O2 levels, mask and BiPAP. CXR earlier this evening did not show pneumothorax. ABG's show PaCO2 of 98 and pH of 7.18. Patient is confused and not able to make decisions appropriately and there is no blocker and cutter contact lens on the record. Will transfer to ICU, intubate and manage on ventilator until final decision can be made regarding further workup and treatment. Martelle is poor to grim given the probable diagnosis of lung cancer with obstructed left mainstem bronchus. DIONNA ROMAN MD FACP Mar 28, 2017 22:49
[2017-03-28 23:00] VITALS: BP 163/96
[2017-03-28] MEDS ORDERED: PROPOFOL(*)1000 MG/100 ML VIAL 100 ML ONE (23:14)
[2017-03-28 23:15] VITALS: BP 134/75
--- NOTE | 2017-03-28 23:20 | ER Inpatient Procedure ---
Inpatient Procedure 03/28/2017 11:01:15 pm called to ICU by Dr. Medina to intubate a patient with hypercarbia and respiratory failure. Patient was admitted earlier with white out of his left lung. Procedure: Rapid sequence intubation. Indication for the procedure was respiratory failure. The patient was preoxygenated with 100% oxygen by face mask. The patient was given the following IV medications: Succinylcholine 120 mg, Versed 2 mg. The patient was orally endotracheally intubated under direct visualization with a kaleidoscope with a 8.0 ETT. In line stabilization was performed during the procedure. Tracheal intubation was confirmed with misting on the tube; breath sounds were auscultated equally bilaterally; appropriate color change with [place] [employer] CO2 detector. Chest X-ray shows ETT in good position. The procedure was performed by myself. Care was turned over to Dr. Medina for further management LARRY MORALES DO Mar 28, 2017 23:20
[2017-03-28 23:30] VITALS: BP 80/42
--- NOTE | 2017-03-28 23:40 | RADIOLOGY IMAGING REPORT ---
[facility] PATIENT NAME: Sylvia Blackwood : 1960 MR: [id number] V: [id number] EXAM DATE: ORDERING PHYSICIAN: DIONNA ROMAN TECHNOLOGIST: Location: [facility] Patient: Sylvia Blackwood : 1960 Visit/Account:[id number] Date of Sevice: 03/28/2017 SINGLE AP RADIOGRAPH OF THE CHEST 03/28/2017 11:04 PM. INDICATION: NG and ET tube placement. COMPARISON: 03/28/2017. FINDINGS: Endotracheal tube terminates 5 cm above the duglas. Esophagogastric tube enters the stomach, tip is not imaged. Persistent diffuse interstitial opacification. There is dense left mid and lower lung o pacification, increased at the base. Left pleural effusion not excluded. No pneumothorax. Cardiac silhouette is slightly enlarged, similar to prior. IMPRESSION: 1. Endotracheal and esophagogastric tubes appear appropriately positioned. 2. Increased opacification of the left base, cardiopulmonary findings are otherwise unchanged. Report Dictated By: Guille Barker MD at 03/28/2017 11:30 PM Report E-Signed By: Guille Barker MD at 03/28/2017 11:35 PM WSN:[id number]
[2017-03-28 23:45] VITALS: BP 67/46
[2017-03-29] VITALS (91 sets, daily range): BP systolic 59–139; BP diastolic 36–97; Ht 167.6 cm; Wt 127.1 kg
[2017-03-29] MEDS ORDERED: FLUSH 10 ML SYR IVP PRN (00:25)
[2017-03-29] MEDS: PROPOFOL(*)1000 MG/100 ML VIAL 100 ML IV PRN ×4 (00:39→16:50)
[2017-03-29] MEDS ORDERED: LEVOPHED KIT (*) 1 IVSOL 1 KIT IV ONE (02:20)
[2017-03-29] MEDS: NOREPINE BITAR* 4 MG/4 ML AMP 4 MG in D5W(*) 250 ML BAG 246 ML IV PRN ×2 (02:21→09:46)
[2017-03-29] MEDS: PIPERACILLIN/TAZO*3.375GM VIAL 3.375 GM in NS(*) 0.9% 100 ML ADDVANT BAG 100 ML IVPB SCH ×4 (02:23→21:23)
--- NOTE | 2017-03-29 04:15 | OPERATIVE REPORT 1 ---
EVENT DATE: March 28, 2017 SURGEON: Luke Leonardo MD ANESTHESIA: Local PREOPERATIVE DIAGNOSIS Left pleural effusion. POSTOPERATIVE DIAGNOSIS Left pleural effusion. PROCEDURE PERFORMED Left thoracentesis. DESCRIPTION OF PROCEDURE Patient was placed in the sitting position. The posterior chest was prepped and draped in a sterile fashion. Skin was anesthetized with 1% Xylocaine with epinephrine. Avi was made in the skin with a #11 blade. Thoracentesis catheter was placed in the mid back just above the rib into the pleural space. Fluid was returned. The catheter was threaded into position. We then obtained 1750 mL of brown fluid from the chest. The flow quit. The catheter was removed. OpSite was placed. Portable chest x-ray pending. [facility]
[2017-03-29] MEDS ORDERED: MIDAZOLAM 2 MG/2 ML VIAL ONE ×3 (04:50→06:18)
[2017-03-29] MEDS: ALBUTEROL/IPRATROPIUM 3 ML NEB NEB SCH ×3 (05:17→17:26)
[2017-03-29] MEDS: NS(*) 0.9% 1000 ML BAG 1,000 ML IV PRN (05:55)
[2017-03-29] MEDS ORDERED: MIDAZOLAM 2 MG/2 ML VIAL IVP PRN (06:05)
[2017-03-29 06:13] LABS: PLATELET COUNT, AUTOMATED 271 K/uL (150-450)
[2017-03-29] MEDS: ENOXAPARIN 40 MG/0.4ML SYR SC SCH (08:30)
[2017-03-29] MEDS: HYDROCORTISONE 100 MG/2 ML IVP SCH ×2 (08:31→18:33)
--- NOTE | 2017-03-29 08:50 | General Surgery Progress Note ---
Subjective Progress Notes Subjective pt on vent Physical Exam Vital Signs Date Time Temp Pulse Resp B/P (MAP) Pulse Ox O2 Delivery O2 Flow Rate FiO2 03/29/17 08:33 80.0 03/29/17 08:00 88 127/76 (93) 93 03/29/17 07:45 21 03/29/17 07:32 Mechanical Ventilator 03/29/17 05:30 97.4 03/28/17 23:30 15.0 Intake and Output 03/30/17 07:00 Output Total 1000 ml Balance -1000 ml Output Urine Total 100 ml Gastric Drainage Total 900 ml Result Diagram: 03/29/17 0548 03/29/17 0548 Assessment and Plan Problems: (1) Bronchial obstruction Assessment & Plan: will do a thoracentesis to obtain fluid for analysis and try to improve lung function. pt appears he will require a bronchoscopy to obtain a diagnosis. he appears to have an obstructing tumor in the bronchus. probably will require a pet scan to look for mets. how much of this workup is done here or back home in [place] is up to the patient. 03/29/17 appears bronchoscopy to obtain biopsy and sputum for culture is the next step. will try to arrange Exam Sepsis Risk: Severe Sepsis Risk TOD FARIA MD Mar 29, 2017 08:50
[2017-03-29] MEDS: ORAL SUCTION/CHLORHX/SWAB KIT MT SCH ×2 (09:49→21:23)
[2017-03-29] MEDS ORDERED: LEVOFLOXACIN/D5W 750 MG/150 ML 150 ML IVPB SCH (10:00)
--- NOTE | 2017-03-29 10:16 | Medical Nutrition Therapy ---
Nutrition Anthropometrics Height (Inches): 66.00 Height (Calculated Centimeters: 167.891166 Weight (Pounds): 265 Weight (Calculated Kilograms): 120.202 BMI Calculated: 42.77 Hx Weight Loss: Yes (Pt stated wt. loss over past 4 wks but not sure how much) Velasquez Nutrition Score: Adequate Velasquez Nutrition Risk Score: 17 Dietary Referral Nutrition Risk Factors: Mech. Ventilated Nutrition Risk Comment: Physical Findings Physical Appearance: Morbidly Obese 40+ Skin Appearance Skin Appearance: Edema Edema Location Modifier: Both Edema Location: Lower Extremity Type of Edema: Degree of Edema: 2+ Gastrointestinal Symptoms GI Symtoms: Tube Present: OG Bowel Sounds: Recent Bowel Pattern: Diarrhea Stool Characteristics: Nutrition/Food History Decreased Appetite Nutritional Diagnosis Nutritional Risk Acuity 1: Acute/ES Renal, Pulm Fail Vent Nutritional Risk Acuity 2: Pr Appetite > 3d, Sepsis Nutritional Acuity: 1-High Nutrition Diagnosis: Inadequate Food Intake Nutrition Problem/Etiology/Sym: Inadequate food intake related respiratory failure as evidenced by mechanical ventilation and diet status of NPO. Energy Requirement: 2355 ([employer] x1.2 AF) Protein Requirement: 75 (1.1g/kg of IBW) Fluid Requirement: 2400 (20 mL/kg) Diet Type: NPO (Nothing by Mouth) Nutrition Intervention: Incr diet as tolerated Nutrition Monitoring & Eval RD Patient Assessment Time: [address] Assessment Type: RD Assessment Patient Nutrition Acuity: 1-High Follow Up Date: Mar 31, 2017 Nutritional Comment: Pt. admitted for increased SOB. Stated having noticed wt. loss over the past 4 weeks but cannot qualify how much. Has a hx of HTN, T2 DM, takes metformin. 03/28) Pt was placed on mech. vent. for resp. failure. Currently receiving 436 kcal from propofol. 03/29) Glu 185,K+ 5.3, Na 136, Cre 2.3, Alb 2.8 CORBY HINDS Mar 29, 2017 10:01
[2017-03-29] MEDS ORDERED: NOREPINE BITAR* 4 MG/4 ML AMP 8 MG in D5W(*) 500 ML BAG 492 ML IV PRN (10:55)
--- NOTE | 2017-03-29 11:03 | Hospitalist Progress Note ---
Subjective Progress Notes Subjective This patient was admitted for respiratory failure and pneumonia. He required vasopressor support overnight. Patient Complains of: Cardiovascular: No: Chest Pain Respiratory: No: Shortness of Breath Physical Exam Vital Signs Date Time Temp Pulse Resp B/P (MAP) Pulse Ox O2 Delivery O2 Flow Rate FiO2 03/29/17 10:43 80.0 03/29/17 10:00 82 20 102/63 (76) 93 03/29/17 09:30 Mechanical Ventilator 03/29/17 05:30 97.4 03/28/17 23:30 15.0 Intake and Output 03/30/17 07:00 Intake Total 116 ml Output Total 1000 ml Balance -884 ml IV Total 116 ml Output Urine Total 100 ml Gastric Drainage Total 900 ml Neuro: Other (Sedated to RASS -1.) Eyes: PERRLA Cardiovascular: Regular Rate and Rhythm, No JVD Respiratory: Other (Bilateral breath sounds present.) Extremities: No Edema Integumentary: No Cyanosis Result Diagram: 03/29/17 0548 03/29/17 0548 Item Value Date Time Arterial Blood pH 7.25 L 03/29/17 0810 Arterial Blood Partial Pressure CO2 78 mmHg *H 03/29/17 0810 Arterial Blood Partial Pressure O2 86 mmHg H 03/29/17 0810 Arterial Blood HCO3 34 mmol/L H 03/29/17 0810 Item Value Date Time Body Fluid Culture - Preliminary Resulted 03/28/17 1716 Pleural Fluid NO GROWTH AFTER 1 DAY, REINCUBATED Blood Culture - Preliminary Resulted 03/28/17 1316 Blood NO GROWTH AFTER 1 DAY, REINCUBATED Blood Culture - Preliminary Resulted 03/28/17 1304 Blood NO GROWTH AFTER 1 DAY, REINCUBATED Imaging Chest x-ray reviewed. Assessment and Plan Problems: (1) Acute respiratory failure Assessment & Plan: He was intubated overnight. He is receiving versed and propofol for sedation. He is tolerating SIMV, but is not generating much volume. His ABG continues to show a respiratory acidosis. We will continue to adjust his ventilator support through the day. (2) Postobstructive pneumonia Status: Acute Assessment & Plan: His chest CT has shown near complete obstruction of the left lung. He has been started on empiric treatment with levofloxacin and Zosyn. Pharmacy has adjusted his doses. His culture have been negative. Dr. Leonardo is considering bronchoscopy. (3) Septic shock Assessment & Plan: He did have an elevated WBC, elevated lactate, and is now requiring vasopressor support with norepinephrine. We have started him on stress dose hydrocortisone. His lactate has improved overnight. (4) Acute renal failure Assessment & Plan: His creatinine did increase overnight. We do have him on IV fluids. (5) Lung mass Status: Acute Assessment & Plan: His CT scan has shown heterogeneous soft tissue attenuation in the central aspect of the left upper lobe extending to the hilum. This is concerning for malignancy. (6) Pleural effusion Status: Acute Assessment & Plan: Dr. Leonardo drained 1700cc on admission. Fluid analysis is pending. (7) Hyperkalemia Status: Acute Assessment & Plan: His potassium is elevated, but has not changed overnight. We will continue IV fluids and consider more aggressive measures if increasing. (8) Type II diabetes mellitus Status: Chronic Assessment & Plan: He reported being on medications, but could not remember which ones. He is currently on sliding scale level #2. Exam Sepsis Risk: Severe Sepsis Risk JONATHAN COHEN DO Mar 29, 2017 11:03
[2017-03-29] MEDS: INSULIN HUM LISPRO 100 UN/ML 3 ML VIAL SUBQ PRN ×3 (13:25→23:39)
[2017-03-29] MEDS ORDERED: MINERAL OIL LIGHT 10 ML VIAL ONE (14:49)
--- NOTE | 2017-03-29 15:31 | Medical Nutrition Therapy ---
Nutrition Anthropometrics Height (Inches): 66.00 Height (Calculated Centimeters: 167.017142 Weight (Pounds): 265 Weight (Calculated Kilograms): 120.202 BMI Calculated: 42.77 Hx Weight Loss: Yes (Pt stated wt. loss over past 4 wks but not sure how much) Velasquez Nutrition Score: Adequate Velasquez Nutrition Risk Score: 17 Dietary Referral Nutrition Risk Factors: Mech. Ventilated Nutrition Risk Comment: Physical Findings Physical Appearance: Morbidly Obese 40+ Skin Appearance Skin Appearance: Edema Edema Location Modifier: Both Edema Location: Lower Extremity Type of Edema: Degree of Edema: 2+ Gastrointestinal Symptoms GI Symtoms: Tube Present: OG Bowel Sounds: Recent Bowel Pattern: Diarrhea Stool Characteristics: Nutritional Diagnosis Nutritional Risk Acuity 1: Acute/ES Renal, Pulm Fail Vent Nutritional Risk Acuity 2: Pr Appetite > 3d, Sepsis Nutritional Acuity: 1-High Nutrition Diagnosis: Inadequate Food Intake Nutrition Problem/Etiology/Sym: Inadequate food intake related respiratory failure as evidenced by mechanical ventilation and diet status of NPO. Energy Requirement: 2355 ([place] x1.2 AF) Protein Requirement: 75 (1.1g/kg of IBW) Fluid Requirement: 2400 (20 mL/kg) Diet Type: NPO (Nothing by Mouth) Nutrition Intervention: Incr diet as tolerated Nutritional Support Current Enteral / Parental: Tube Feeding Tube Feeding Formulas: Jevity 1cal/ml-Standard Tube Feeding Supplement Streng: Full Rate: 40mL/hr, increase 10 Q4 hr to final rate 80 mL/hr Current Calories: 2035 (based on goal rate of 80ml/hr) Current Protein: 85 (based on final rate of 80ml/hr) Nutrition Monitoring & Eval Nutritional Goals Comment: Tube feeding will meet nutritional needs RD Patient Assessment Time: [address] Assessment Type: Nutrition Support Consult Patient Nutrition Acuity: 1-High Follow Up Date: Mar 31, 2017 Nutritional Comment: Pt. admitted for increased SOB. Stated having noticed wt. loss over the past 4 weeks but cannot qualify how much. Has a hx of HTN, T2 DM, takes metformin. 03/28) Pt was placed on mech. vent. for resp. failure. Currently receiving 436 kcal from propofol. 03/29) Glu 185,K+ 5.3, Na 136, Cre 2.3, Alb 2.8 03/29) 15:00 Current tube feeding is providing 2035 kcal and 85 g of protein meeting 86% of energy and protein needs. Due to patients BMI in class 3 obesity range and overfeeding is not desired continue rec plan of care. Fluid needs should be met with current tube feeding and IV fluids. CORBY HINDS Mar 29, 2017 14:44
[2017-03-29] MEDS ORDERED: PHENYLEPHRINE/NS/PF 0.4MG/10ML ONE (16:05)
[2017-03-29] MEDS ORDERED: PROPOFOL EMUL(*) 10MG/ML 20 ML 20 ML ONE (16:06)
[2017-03-29] MEDS ORDERED: LIDOCAINE MPF 1% 5 ML VIAL ONE (16:06)
[2017-03-29] MEDS ORDERED: NORMOSOL R SOLN(*) 1000 ML BAG 1,000 ML IV ONE (16:10)
[2017-03-29] MEDS ORDERED: fentaNYL CITR 100 MCG/2 ML AMP ONE (16:11)
[2017-03-29] MEDS ORDERED: EPINEPHrine HCL 1 MG/ML AMP ONE (16:12)
[2017-03-29] MEDS ORDERED: KETAMINE HCL 500 MG/10 ML VIAL ONE (16:22)
--- NOTE | 2017-03-29 17:27 | Post Operative Progress Note ---
Post Operative Progress Note Date: Mar 29, 2017 Time: 17:24 Surgeon: leigha Anesthesia: dr napoles Pre-Op Diagnosis: left lung tumor Post-Op Diagnosis: same Procedure(s): bronchoscopy with biopsy and washing TOD FARIA MD Mar 29, 2017 17:27
--- NOTE | 2017-03-29 17:29 | Post Operative Progress Note ---
Post Operative Progress Note Date: Mar 29, 2017 Time: 17:27 Surgeon: leigha Anesthesia: dr napoles Pre-Op Diagnosis: sepsis Post-Op Diagnosis: same Procedure(s): left subclavian cvc placement TOD FARIA MD Mar 29, 2017 17:29
--- NOTE | 2017-03-29 17:59 | RADIOLOGY IMAGING REPORT ---
FACILITY: [facility] PATIENT NAME: Sylvia Blackwood : 1960 MR: [id number] V: [id number] EXAM DATE: ORDERING PHYSICIAN: TOD FARIA TECHNOLOGIST: Location: [facility] Patient: Sylvia Blackwood : 1960 Visit/Account:[id number] Date of Sevice: 03/29/2017 EXAMINATION: Portable AP Chest 03/29/2017 5:24 PM HISTORY: LINE PLACEMENT COMPARISON: 03/28/2017 FINDINGS: Cardiomediastinal contours: Some clearing centimeters catheter tip projects over the mid to upper SVC. Endotracheal tube tip is fairly stable about 5 cm above the duglas. NG extends past the GE junction although the tip is not w ell defined on this study but is potentially pullback closer to the GE junction than previously. No gross change in the cardiac size Lungs and pleura: Near complete opacification of the left hemithorax are present. Vasculature is ind istinct on the right. Bones/soft tissues: Normal Cardiac leads are present. IMPRESSION: 1. Satisfactory position of new left subclavian central venous catheter. No pneumothorax. 2. Left hemithorax is now nearly completely opacified. This may all be pleural fluid and atelectasi s. Infiltrate cannot be excluded. 3. Has the NG tube pulled back? Report Dictated By: Shane Martinez MD at 03/29/2017 5:51 PM Report E-Signed By: Shane Martinez MD at 03/29/2017 5:55 PM WSN:[id number]
[2017-03-30] VITALS (92 sets, daily range): BP systolic 82–130; BP diastolic 55–81
[2017-03-30] MEDS: HYDROCORTISONE 100 MG/2 ML IVP SCH ×3 (00:28→17:16)
[2017-03-30] MEDS: PROPOFOL(*)1000 MG/100 ML VIAL 100 ML IV PRN ×8 (01:23→22:56)
[2017-03-30] MEDS: NS(*) 0.9% 1000 ML BAG 1,000 ML IV PRN ×2 (01:24→11:35)
[2017-03-30] MEDS: PIPERACILLIN/TAZO*3.375GM VIAL 3.375 GM in NS(*) 0.9% 100 ML ADDVANT BAG 100 ML IVPB SCH ×4 (03:36→20:43)
--- NOTE | 2017-03-30 05:22 | RADIOLOGY IMAGING REPORT ---
FACILITY: [facility] [place] PATIENT NAME: Sylvia Blackwood : 1960 MR: [id number] V: [id number] EXAM DATE: ORDERING PHYSICIAN: JONATHAN COHEN TECHNOLOGIST: Location: [facility] [place] Patient: Sylvia Blackwood : 1960 Visit/Account:[id number] Date of Sevice: 03/30/2017 SINGLE AP RADIOGRAPH OF THE CHEST 03/30/2017 6:00 AM. INDICATION: intubated COMPARISON: Yesterday. FINDINGS: Unchanged support line and tubes. Slightly improved aeration of the left lower lung with persistent dense opacification of the base and mid to upper lung. No pneumothorax. Heart size is likely unchan ged. IMPRESSION: Slightly improved left lower lung comparison. Report Dictated By: Guille Barker MD at 03/30/2017 5:09 AM Report E-Signed By: Guille Barker MD at 03/30/2017 5:17 AM WSN:[id number]
[2017-03-30 05:49] LABS: PLATELET COUNT, AUTOMATED 218 K/uL (150-450)
[2017-03-30] MEDS: ALBUTEROL/IPRATROPIUM 3 ML NEB NEB SCH ×3 (06:10→16:51)
[2017-03-30] MEDS: INSULIN HUM LISPRO 100 UN/ML 3 ML VIAL SUBQ PRN ×3 (06:16→17:59)
[2017-03-30] MEDS: ORAL SUCTION/CHLORHX/SWAB KIT MT SCH ×2 (08:53→20:43)
[2017-03-30] MEDS: ENOXAPARIN 40 MG/0.4ML SYR SC SCH (08:53)
--- NOTE | 2017-03-30 11:18 | Hospitalist Progress Note ---
Subjective Progress Notes Subjective He has been weaned down to 2 mcg/min of norepinephrine and 60% FiO2 over the last 24 hours. He did become tachypneic and took a while to recover when his head was lowered. The secretions from the ET tube are now clear. He is tolerating the tube feedings. Physical Exam Vital Signs Date Time Temp Pulse Resp B/P (MAP) Pulse Ox O2 Delivery O2 Flow Rate FiO2 03/30/17 10:46 92 Mechanical Ventilator 60.0 03/30/17 10:46 92 03/30/17 10:45 0 03/30/17 10:30 100/68 (79) 03/30/17 10:15 98.6 03/28/17 23:30 15.0 Intake and Output 03/31/17 07:00 Intake Total 258 ml Output Total 350 ml Balance -92 ml IV Total 258 ml Output Urine Total 350 ml General Appearance: Other (Sedated and intubated) Eyes: PERRLA ENT: Moist Mucous Membranes Cardiovascular: Regular Rate and Rhythm Respiratory: Clear to Auscultation GI: Soft and Non-Tender Extremities: No Edema Integumentary: No Jaundice, No Cyanosis Result Diagram: 03/30/1751903/30/17519 Assessment and Plan Problems: (1) Acute respiratory failure Assessment & Plan: He was intubated on 03/28. He is propofol for sedation. He is tolerating SIMV. He is overbreathing the vent. His plateau pressures are about 26 cm H2O. His respiratory acidosis has resolved and the ABG is consistent with CO2 retention. His FiO2 requirement has decreased from 80% to 60%. He is tolerating tube feedings of Glucerna at the recommended goal rate. He is on Lovenox and Protonix. (2) Postobstructive pneumonia Status: Acute Assessment & Plan: His chest CT has shown near complete obstruction of the left lung with a mass that is concerning for a malignancy with a component of postobstructive pneumonitis. He has been started on empiric treatment with levofloxacin and Zosyn. Pharmacy has adjusted his doses. His culture have been negative. Dr. Leonardo did a thoracentesis on 03/28 and drained 1750cc from the left lung and a bronchoscopy on 03/29 and did a biopsy with lung washings. (3) Septic shock Status: Acute Assessment & Plan: He did have an elevated WBC, elevated lactate, and is now requiring vasopressor support with norepinephrine. He was started on stress dose hydrocortisone. His lactate has improved overnight and we are weaning down his norepinephrine. (4) Acute renal failure Assessment & Plan: He presented with a Cr of 1.7 and then it increased to 2.3. Today, he is 1.5. Will decrease IVF. (5) Lung mass Status: Acute Assessment & Plan: His CT scan has shown heterogeneous soft tissue attenuation in the central aspect of the left upper lobe extending to the hilum. This is concerning for malignancy. (6) Pleural effusion Status: Acute Assessment & Plan: Dr. Leonardo drained 1750cc on admission. Cytology didn't show any malignancy and culture has not had any growth. (7) Hyperkalemia Status: Acute Assessment & Plan: His potassium was elevated. We will continue IV fluids and consider more aggressive measures if increasing. (8) Type II diabetes mellitus Status: Chronic Assessment & Plan: He reported being on medications, but could not remember which ones. He is currently on sliding scale level #2 with glucose ranging from 153-249. Exam Sepsis Risk: No Definite Risk ISAIAS DELAROSA MD Mar 30, 2017 11:18
[2017-03-30] MEDS: PANTOPRAZOLE SOD 40 MG IV VIAL IVP SCH (11:36)
--- NOTE | 2017-03-30 13:11 | Medical Nutrition Therapy ---
Nutrition Anthropometrics Height (Inches): 66.00 Height (Calculated Centimeters: 167.960501 Weight (Pounds): 269 Weight (Calculated Kilograms): 122.016 BMI Calculated: 42.77 Hx Weight Loss: Yes (Pt stated wt. loss over past 4 wks but not sure how much) Velasquez Nutrition Score: Adequate Velasquez Nutrition Risk Score: 13 Dietary Referral Nutrition Risk Factors: Mech. Ventilated Nutrition Risk Comment: Physical Findings Physical Appearance: Morbidly Obese 40+ Skin Appearance Skin Appearance: Edema Edema Location Modifier: Both Edema Location: Lower Extremity Type of Edema: Degree of Edema: 2+ Gastrointestinal Symptoms GI Symtoms: Tube Present: OG Bowel Sounds: Recent Bowel Pattern: Diarrhea Stool Characteristics: Nutritional Diagnosis Nutritional Risk Acuity 1: Acute/ES Renal, Pulm Fail Vent Nutritional Risk Acuity 2: Pr Appetite > 3d, Sepsis Nutritional Acuity: 1-High Nutrition Diagnosis: Inadequate Food Intake Nutrition Problem/Etiology/Sym: Inadequate food intake related respiratory failure as evidenced by mechanical ventilation and diet status of NPO. Energy Requirement: 2355 ([place] x1.2 AF) Protein Requirement: 75 (1.1g/kg of IBW) Fluid Requirement: 2400 (20 mL/kg) Diet Type: NPO (Nothing by Mouth) Nutrition Intervention: Incr diet as tolerated Nutritional Support Current Enteral / Parental: Tube Feeding Tube Feeding Formulas: Glucerna 1cal/ml-Diabetic Tube Feeding Supplement Streng: Full Rate: 40mL/hr, increase 10 Q4 hr to final rate 80 mL/hr Current Calories: 1920 (based on goal rate of 80ml/hr) Current Protein: 80 (based on final rate of 80ml/hr) Current Lipids Calories: 950 (propofol) Total Current Calories: 2870 Recommended Enteral / Parental: Tube Feeding Recommended Tube Feeding Formu: Specialty Formula (promote) Recommended Tube Feeding Formu: Promote Tube Feeding Supplement Streng: Full Recommended Rate: 50 mL/hr/24 hr Recommended Calories: 1200 (Promote) Recommended Protein: 75 Recommended Lipids Calories: 950 (from propofol) Total Recommended Calories: 2150 Nutrition Monitoring & Eval RD Patient Assessment Time: [address] Assessment Type: RD Re-Assessment Patient Nutrition Acuity: 1-High Follow Up Date: Mar 31, 2017 Nutritional Comment: Pt. admitted for increased SOB. Stated having noticed wt. loss over the past 4 weeks but cannot qualify how much. Has a hx of HTN, T2 DM, takes metformin. 03/28) Pt was placed on mech. vent. for resp. failure. Currently receiving 436 kcal from propofol. 03/29) Glu 185,K+ 5.3, Na 136, Cre 2.3, Alb 2.8. 03/29) 15:00 Current tube feeding is providing 2035 kcal and 85 g of protein meeting 86% of energy and protein needs. Due to patients BMI in class 3 obesity range and overfeeding is not desired continue rec plan of care. Fluid needs should be met with current tube feeding and IV fluids. 03/30) Pt remains on mech vent. TF orders of Glucerna final rate of 80mL/hr/24hr and propofol 36.06 mL/hr will provide 2850 kcals and 80 g of protein. Final rate will meet 122% of calorie needs and 106% of protein needs. Pt has moderate residuals, tolerating feeding fair. RD recs TF formula change to Promote. Propofol @ 36.06mL/hr and Promote @ 50mL/hr/24hr will provide a total of 2150 kcals/day. Which will meet 100% of protein needs and 91% of calorie needs. Labs: 03/30) Glu 188, Alb 2.6, Ca 8.2, Cre 1.5 Meds:Lispro. 03/30) wt 268#, 4# increase since 03/29. CORBY HINDS Mar 30, 2017 13:11
--- NOTE | 2017-03-30 16:39 | OPERATIVE REPORT 1 ---
EVENT DATE: March 29, 2017 SURGEON: Luke Leonardo MD ANESTHESIOLOGIST: Carlos Rome MD ANESTHESIA: General PREOPERATIVE DIAGNOSIS Left lung tumor. POSTOPERATIVE DIAGNOSIS Left lung tumor. PROCEDURE PERFORMED Bronchoscopy with biopsy, washing, and obtaining cultures. DESCRIPTION OF PROCEDURE The patient was in the supine position in the ICU on the ventilator. Dr. Rome dealt with the anesthesia. The flexible bronchoscope was inserted and passed through the endotracheal tube. He had some thick mucus-like material that was suctioned mainly from the left lung. We suctioned a little from the right. I did not identify any abnormalities in the right lung. In the left lung, we identified one bronchus that was narrowed, but I could not definitely visualize a tumor in it. I was then able to get the scope to advance any further into that airway and get any better visualization. First, we suctioned and obtained a culture. We then passed a brush and brushed that bronchus for cytology. We then suctioned and irrigated in that bronchus and obtained specimen for cytology. We then passed the biopsy biter. We took two bites down this bronchus. After that, we had some bleeding that made visualization difficult. At that point, we were not accomplishing much, so the procedure was terminated. The patient tolerated the procedure well with no apparent complication. ALDO
--- NOTE | 2017-03-30 16:50 | OPERATIVE REPORT 1 ---
EVENT DATE: March 29, 2017 SURGEON: Luke Leonardo MD ANESTHESIOLOGIST: Carlos Rome MD ANESTHESIA: Sedation. PREOPERATIVE DIAGNOSIS Sepsis. POSTOPERATIVE DIAGNOSIS Sepsis. PROCEDURE PERFORMED Placement of a left subclavian central venous catheter. DESCRIPTION OF PROCEDURE The patient was placed in the supine position. He was on the ventilator. The left chest was prepped and draped in a sterile fashion. An 18-gauge needle was inserted beneath the left clavicle into the left subclavian vein. Good blood return was obtained. A guidewire was passed. The needle was removed. A gissel was made in the skin with a #11 blade. A dilator was passed. The dilator was removed. A 3M central venous catheter was passed over the guidewire. The guidewire was removed. The ports were aspirated and flushed with saline. It was sutured in place with 3-0 silk. A sterile bandage was placed. The patient tolerated the procedure well. No apparent complications. Portable chest x-ray showed the catheter in good position in the superior vena cava. [id number]
[2017-03-31] VITALS (66 sets, daily range): BP systolic 95–129; BP diastolic 69–93
[2017-03-31] MEDS: HYDROCORTISONE 100 MG/2 ML IVP SCH ×3 (00:42→21:00)
[2017-03-31] MEDS: INSULIN HUM LISPRO 100 UN/ML 3 ML VIAL SUBQ PRN ×4 (00:42→18:30)
[2017-03-31] MEDS: PROPOFOL(*)1000 MG/100 ML VIAL 100 ML IV PRN ×7 (02:21→23:01)
[2017-03-31] MEDS: PIPERACILLIN/TAZO*3.375GM VIAL 3.375 GM in NS(*) 0.9% 100 ML ADDVANT BAG 100 ML IVPB SCH ×4 (02:21→21:00)
[2017-03-31] MEDS: NS(*) 0.9% 1000 ML BAG 1,000 ML IV PRN ×2 (02:21→18:22)
--- NOTE | 2017-03-31 06:11 | RADIOLOGY IMAGING REPORT ---
FACILITY: [facility] [place] PATIENT NAME: Sylvia Blackwood : 1960 MR: [id number] V: [id number] EXAM DATE: ORDERING PHYSICIAN: ISAIAS DELAROSA TECHNOLOGIST: Location: [facility] Patient: Sylvia Blackwood : 1960 Visit/Account:[id number] Date of Sevice: 03/31/2017 SINGLE AP RADIOGRAPH OF THE CHEST 03/31/2017 5:43 AM. INDICATION: Pneumonia, lung mass, intubated. COMPARISON: Yesterday. FINDINGS: Unchanged support line and tubes. Left lung aeration is again slightly improved. Dense opacificatio n over the left upper lung persists. No pneumothorax. Heart size is likely unchanged. IMPRESSION: Slightly improved left lung aeration. Report Dictated By: Guille Barker MD at 03/31/2017 6:07 AM Report E-Signed By: Guille Barker MD at 03/31/2017 6:08 AM WSN:[id number]
[2017-03-31 06:18] LABS: PLATELET COUNT, AUTOMATED 223 K/uL (150-450)
[2017-03-31] MEDS: PANTOPRAZOLE SOD 40 MG IV VIAL IVP SCH (08:30)
[2017-03-31] MEDS: ENOXAPARIN 40 MG/0.4ML SYR SC SCH (08:30)
[2017-03-31] MEDS: ORAL SUCTION/CHLORHX/SWAB KIT MT SCH ×2 (08:30→21:00)
[2017-03-31] MEDS: MAGNESIUM HYDROXIDE* 30ML UDCP PO PRN (09:01)
[2017-03-31] MEDS: LEVOFLOXACIN/D5W 750 MG/150 ML 150 ML IVPB SCH (10:03)
--- NOTE | 2017-03-31 11:35 | Hospitalist Progress Note ---
Subjective Progress Notes Subjective Sedated on ventilator. O2 requirement is slightly better. Physical Exam Vital Signs Date Time Temp Pulse Resp B/P (MAP) Pulse Ox O2 Delivery O2 Flow Rate FiO2 03/31/17 11:01 70 18 03/31/17 11:01 95 Mechanical Ventilator 50.0 03/31/17 10:30 98.2 122/77 (92) 03/28/17 23:30 15.0 Intake and Output 04/01/17 07:00 Intake Total 220 ml Output Total 263 ml Balance -43 ml IV Total 220 ml Output Urine Total 263 ml General Appearance: Other (sedated on ventilator) ENT: Other (ET tube/OG tube in place) Cardiovascular: Regular Rate and Rhythm Respiratory: Other (fairly clear on right with some transmitted breath sounds on left) GI: Other (rare BS noted) Extremities: Warm, Perfused, Edema (trace) Result Diagram: 03/31/1760403/31/17604 Assessment and Plan Problems: (1) Acute respiratory failure Status: Acute Assessment & Plan: He was intubated on 03/28 due to CO2 retention/hypoxia. He is on propofol for sedation. He is tolerating SIMV fairly well. His respiratory acidosis has resolved and the ABG is consistent with chronic CO2 retention. His FiO2 requirement has decreased slowly. He is tolerating tube feedings fairly well. He is on Lovenox and Protonix. (2) Postobstructive pneumonia Status: Acute Assessment & Plan: His chest CT has shown near complete obstruction of the left lung with a mass that is concerning for a malignancy with a component of postobstructive pneumonitis. He has been started on empiric treatment with levofloxacin and Zosyn. His cultures have been negative. Dr. Leonardo did a thoracentesis on 03/28 and drained 1750cc from the left lung and a bronchoscopy on 03/29 and did a biopsy with lung washings. Both of these are negative for malignancy. (3) Septic shock Status: Acute Assessment & Plan: He did have an elevated WBC, elevated lactate, and required vasopressor support with norepinephrine for a short time. He was started on stress dose hydrocortisone (will decrease dose today). Most of his findings may be related to the hypoxia, CO2 retention, and respiratory failure rather than infection with sepsis. (4) Acute renal failure Assessment & Plan: He presented with a Cr of 1.7 and then it increased to 2.3. Today, he is in normal range at 1.2. (5) Lung mass Status: Acute Assessment & Plan: His CT scan has shown heterogeneous soft tissue attenuation in the central aspect of the left upper lobe extending to the hilum. This is very concerning for malignancy. At this point, we do not have a reasonable way to approach this for tissue biopsy. (6) Pleural effusion Status: Acute Assessment & Plan: Dr. Leonardo drained 1750cc on admission. Cytology didn't show any malignancy and culture has not had any growth. (7) Hyperkalemia Status: Acute Assessment & Plan: Now resolved. (8) Type II diabetes mellitus Status: Chronic Assessment & Plan: He reported being on medications, but could not remember which ones. He is currently on sliding scale level #2 with glucose ranging from 150-300. We will be decreasing his steroids, which should help. Exam Sepsis Risk: No Definite Risk NHUNG ACEVES MD Mar 31, 2017 11:35
[2017-03-31] MEDS ORDERED: SUCCINYLCHOL CHL 200MG/10ML VL IVP ONE (17:34)
--- NOTE | 2017-03-31 18:54 | RADIOLOGY IMAGING REPORT ---
FACILITY: [facility] PATIENT NAME: Sylvia Blackwood : 1960 MR: [id number] V: [id number] EXAM DATE: ORDERING PHYSICIAN: NHUNG ACEVES TECHNOLOGIST: Location: [facility] [place] Patient: Sylvia Blackwood : 1960 Visit/Account:[id number] Date of Sevice: 03/31/2017 Chest single view: HISTORY: ET tube placement. COMPARISON: 03/31/2017 0543 hours FINDINGS: Portable chest 1733 hours: Patient remains intubated, ET tube tip is approximately 4 cm abo ve the duglas. Left subclavian catheter is in place with tip in the SVC. NG tube tip projects off the edge of the film. Heart appears mildly enlarged. There is persistent dense opacification over the left upper hemithorax . There is also consolidation in the left lung base. Patchy airspace opacity is now present in the ri ght medial lung base. IMPRESSION: 1. ET tube tip in good position prior study 4 cm above the duglas. NG tube and left subclavian line a re unchanged. 2. Persistent dense opacification of the left upper lobe as well as portions of the left lower lobe, atelectasis versus infiltrate. 3. Increasing opacity in the right medial lung base, atelectasis and/or infiltrate. Report Dictated By: Lauren Salamanca MD at 03/31/2017 6:48 PM Report E-Signed By: Lauren Salamanca MD at 03/31/2017 6:51 PM [id number]
--- NOTE | 2017-03-31 18:58 | RADIOLOGY IMAGING REPORT ---
FACILITY: [facility] PATIENT NAME: Sylvia Blackwood : 1960 MR: [id number] V: [id number] EXAM DATE: ORDERING PHYSICIAN: LILY MEDEL TECHNOLOGIST: Location: [facility] Patient: Sylvia Blackwood : 1960 Visit/Account:[id number] Date of Sevice: 03/31/2017 Chest single view: HISTORY: Elevated peak airway pressure, post reintubation COMPARISON: Multiple prior studies from 03/31/2017, the most recent 1733 hours FINDINGS: Portable chest 1754 hours: Per the history, patient has been reintubated. ET tube tip is ap proximately 4.7 cm above the duglas. Left subclavian catheter is unchanged. NG tube tip projects off the edge of the film. There is persistent dense opacification of the left upper lobe. Compared to previous there is slight improved aeration of both lower lungs. There is no definite pleural effusion. No pneumothorax. Pulmon yvette vasculature is normal. Heart and mediastinal contours are unchanged. IMPRESSION: 1. Per the history, interval intubation, ET tube tip approximately 4.7 cm above the duglas. NG tube a nd left subclavian catheter are unchanged. 2. Persistent dense opacification of the left upper lobe. There is slight improved aeration of the lo wer lobes bilaterally. Report Dictated By: Lauren Salamanca MD at 03/31/2017 6:51 PM Report E-Signed By: Lauren Salamanca MD at 03/31/2017 6:55 PM WSN:[id number]
[2017-04-01] VITALS (63 sets, daily range): BP systolic 92–135; BP diastolic 71–90
[2017-04-01] MEDS: INSULIN HUM LISPRO 100 UN/ML 3 ML VIAL SUBQ PRN ×5 (00:19→23:28)
[2017-04-01] MEDS: PIPERACILLIN/TAZO*3.375GM VIAL 3.375 GM in NS(*) 0.9% 100 ML ADDVANT BAG 100 ML IVPB SCH ×4 (02:16→21:15)
[2017-04-01] MEDS: PROPOFOL(*)1000 MG/100 ML VIAL 100 ML IV PRN ×7 (02:16→23:27)
[2017-04-01 05:39] LABS: PLATELET COUNT, AUTOMATED 225 K/uL (150-450)
--- NOTE | 2017-04-01 06:25 | RADIOLOGY IMAGING REPORT ---
FACILITY: [facility] PATIENT NAME: Sylvia Blackwood : 1960 MR: [id number] V: [id number] EXAM DATE: ORDERING PHYSICIAN: NHUNG ACEVES TECHNOLOGIST: Location: Patient: Sylvia Blackwood : 1960 Visit/Account:[id number] Date of Sevice: 04/01/2017 Portable chest: Indication: Pneumonia. Technique: A single frontal film was obtained. Comparison: 03/31/2017 Lines and tubes: The ET tube, NG tube, and central venous catheter remain in satisfactory position. Skeletal and soft tissue structures: Intact and unchanged. Heart and mediastinum: Stable. Lung laureano: There is worsening consolidation and volume loss in the left lung. The right lung remain s clear. Pleural spaces: A small left effusion is suspected. There is no evidence of pneumothorax. Impression: There is worsening consolidation and volume loss in the left lung. Report Dictated By: Jin Arredondo MD at 04/01/2017 6:18 AM Report E-Signed By: Jin Arredondo MD at 04/01/2017 6:20 AM WSN:[id number]
[2017-04-01] MEDS: MAGNESIUM HYDROXIDE* 30ML UDCP PO PRN ×2 (09:34→15:04)
[2017-04-01] MEDS: ORAL SUCTION/CHLORHX/SWAB KIT MT SCH ×2 (09:35→21:15)
[2017-04-01] MEDS: PANTOPRAZOLE SOD 40 MG IV VIAL IVP SCH (09:35)
[2017-04-01] MEDS: ENOXAPARIN 40 MG/0.4ML SYR SC SCH (09:38)
[2017-04-01] MEDS: LEVOFLOXACIN/D5W 750 MG/150 ML 150 ML IVPB SCH (10:20)
--- NOTE | 2017-04-01 11:18 | Hospitalist Progress Note ---
Subjective Progress Notes Subjective He had significantly lower Vt with PS/PEEP settings even with a PS of 15. No concerns from staff overnight. Physical Exam Vital Signs Date Time Temp Pulse Resp B/P (MAP) Pulse Ox O2 Delivery O2 Flow Rate FiO2 04/01/17 10:39 61 04/01/17 10:30 19 114/72 (86) 94 04/01/17 09:00 Mechanical Ventilator 60.0 04/01/17 07:00 98.0 03/28/17 23:30 15.0 Intake and Output 04/02/17 07:00 Intake Total 95 ml Output Total 160 ml Balance -65 ml IV Total 95 ml Output Urine Total 160 ml General Appearance: Other (Intubated and sedated) Neuro: No Gross deficits (He resists opening of eyes. Not following commands) ENT: Moist Mucous Membranes Cardiovascular: Regular Rate and Rhythm Respiratory: Other (Not moving much air on the left.) GI: Soft and Non-Tender Result Diagram: 04/01/17 0458 04/01/17 045 Assessment and Plan Problems: (1) Acute respiratory failure Status: Acute Assessment & Plan: He was intubated on 03/28 due to CO2 retention/hypoxia. He is on propofol for sedation. He is tolerating SIMV fairly well, but doesn't have good Vt on PS/PEEP only settings. His respiratory acidosis has resolved and the ABG is consistent with chronic CO2 retention. His FiO2 requirement has decreased slowly. He is tolerating tube feedings fairly well. He is on Lovenox and Protonix. (2) Postobstructive pneumonia Status: Acute Assessment & Plan: His chest CT has shown near complete obstruction of the left lung with a mass that is concerning for a malignancy with a component of postobstructive pneumonitis. He has been started on empiric treatment with levofloxacin and Zosyn. His cultures have been negative. Dr. Leonardo did a thoracentesis on 03/28 and drained 1750cc from the left lung and a bronchoscopy on 03/29 and did a biopsy with lung washings. Both of these are negative for malignancy. Dr. Delarosa spoke with Dr. Guzman (Pulmonology) would agreed with the plan of care. If the patient isn't progressing, then the patient might need to be transferred to a higher level of care. CT today to evaluate the pleural effusion and obstruction. (3) Septic shock Status: Resolved Assessment & Plan: He did have an elevated WBC, elevated lactate, and required vasopressor support with norepinephrine for a short time. He was started on stress dose hydrocortisone (stopped on 04/01). Most of his findings may be related to the hypoxia, CO2 retention, and respiratory failure rather than infection with sepsis. (4) Acute renal failure Assessment & Plan: He presented with a Cr of 1.7 and then it increased to 2.3. Today, he is in normal range at 1.1. (5) Lung mass Status: Acute Assessment & Plan: His CT scan has shown heterogeneous soft tissue attenuation in the central aspect of the left upper lobe extending to the hilum. This is very concerning for malignancy. At this point, we do not have a reasonable way to approach this for tissue biopsy. (6) Pleural effusion Status: Acute Assessment & Plan: Dr. Leonardo drained 1750cc on admission. Cytology didn't show any malignancy and culture has not had any growth. (7) Hyperkalemia Status: Resolved Assessment & Plan: Now resolved. (8) Type II diabetes mellitus Status: Chronic Assessment & Plan: He reported being on medications, but could not remember which ones. He is currently on sliding scale level #2 with glucose ranging from 200-250. We are stopping his steroids, which should help. Exam Sepsis Risk: No Definite Risk ISAIAS DELAROSA MD Apr 01, 2017 11:18
[2017-04-01] MEDS: NS(*) 0.9% 1000 ML BAG 1,000 ML IV PRN (12:41)
--- NOTE | 2017-04-01 13:07 | Medical Nutrition Therapy ---
Nutrition Anthropometrics Height (Inches): 66.00 Height (Calculated Centimeters: 167.755757 Weight (Pounds): 277 Weight (Calculated Kilograms): 125.872 BMI Calculated: 42.77 Hx Weight Loss: Yes (Pt stated wt. loss over past 4 wks but not sure how much) Velasquez Nutrition Score: Adequate Velasquez Nutrition Risk Score: 13 Dietary Referral Nutrition Risk Factors: Mech. Ventilated Nutrition Risk Comment: Physical Findings Physical Appearance: Morbidly Obese 40+ Skin Appearance Skin Appearance: Edema Edema Location Modifier: Both Edema Location: Generalized Type of Edema: Degree of Edema: 1+ Gastrointestinal Symptoms GI Symtoms: Tube Present: OG Bowel Sounds: Recent Bowel Pattern: Diarrhea Stool Characteristics: Nutritional Diagnosis Nutritional Risk Acuity 1: Tube Feed Unstable, Acute/ES Renal, Pulm Fail Vent Nutritional Risk Acuity 2: Pr Appetite > 3d, Sepsis Nutritional Acuity: 1-High Nutrition Diagnosis: Inadequate Food Intake Nutrition Problem/Etiology/Sym: Inadequate food intake related respiratory failure as evidenced by mechanical ventilation and diet status of NPO. Energy Requirement: 2355 ([place] x1.2 AF) Protein Requirement: 75 (1.1g/kg of IBW) Fluid Requirement: 2400 (20 mL/kg) Diet Type: NPO (Nothing by Mouth) Nutrition Intervention: Incr diet as tolerated Nutritional Support Current Enteral / Parental: Tube Feeding Tube Feeding Formulas: Specialty Formula (Promote) Tube Feeding Supplement Streng: Full Feeding Route: FT Placed Oralgastric Rate: 50mL/hr/24hr Current Calories: 1200 (promote) Current Protein: 75 Current Lipids Calories: 761 (propofol) Total Current Calories: 1961 Recommended Tube Feeding Formu: Promote Nutrition Monitoring & Eval RD Patient Assessment Time: [address] Assessment Type: RD Re-Assessment Patient Nutrition Acuity: 1-High Follow Up Date: Mar 31, 2017 Nutritional Comment: Pt. admitted for increased SOB. Stated having noticed wt. loss over the past 4 weeks but cannot qualify how much. Has a hx of HTN, T2 DM, takes metformin. 03/28) Pt was placed on mech. vent. for resp. failure. Currently receiving 436 kcal from propofol. 03/29) Glu 185,K+ 5.3, Na 136, Cre 2.3, Alb 2.8. 03/29) 15:00 Current tube feeding is providing 2035 kcal and 85 g of protein meeting 86% of energy and protein needs. Due to patients BMI in class 3 obesity range and overfeeding is not desired continue rec plan of care. Fluid needs should be met with current tube feeding and IV fluids. 03/30) [facility] TF orders of Glucerna final rate of 80mL/hr/24hr and propofol 36.06 mL/hr will provide 2850 kcals and 80 g of protein. Final rate will meet 122% of calorie needs and 106% of protein needs. Pt has moderate residuals, tolerating feeding fair. RD recs TF formula change to Promote. Propofol @ 36.06mL/hr and Promote @ 50mL/hr/24hr will provide a total of 2150 kcals/day. Which will meet 100% of protein needs and 91% of calorie needs. Labs: 03/30) Glu 188, Alb 2.6, Ca 8.2, Cre 1.5 Meds:Lispro. 03/30) wt 268#, 4# increase since 03/29. 04/01) Pt. tolerating current TF well, moderate residuals. 03/31) WBG 117, Random Glu 246, Ca 7.5, Alb 2.7 Will continue to monitor TF tolerance and residuals, wt and labs CORBY HINDS Apr 01, 2017 12:36
--- NOTE | 2017-04-01 15:47 | RADIOLOGY IMAGING REPORT ---
FACILITY: [facility] PATIENT NAME: Sylvia Blackwood : 1960 MR: [id number] V: [id number] EXAM DATE: ORDERING PHYSICIAN: ISAIAS DELAROSA TECHNOLOGIST: Location: [facility] - [place], [place] Patient: Sylvia Blackwood : 1960 Visit/Account:[id number] Date of Sevice: 04/01/2017 CHEST W W/O CONTRAST Indication: post obstructive pneumonia, pleural effusion Comparison: CT chest 03/28/2017 TECHNIQUE: CT thoracic inlet through the adrenal glands obtained with and without IV contrast. One of the following dose optimization techniques was utilized in the performance of this exam: automated e xposure control; adjustment of the mA and/or kV according to the patient's size; or use of an iterati ve reconstruction technique. Specific details can be referenced in the facility's radiology CT exam operational policy. Contrast: 75 cc Isovue-370. FINDINGS: Lungs: There is an endotracheal tube with its tip in the mid trachea in good position. There is a m oderate left-sided pleural effusion. There is complete consolidation of the left upper lobe. There is slightly improved aeration of the left midlung zone compared to the prior study. There is a small right-sided pleural effusion, new from the prior study. Majority of the right lung is clear. Mediastinum/heart: Cardiomegaly is unchanged. Musculoskeletal / Body wall: There is a left subclavian central transcatheter with its tip at the shey ction of the right and left innominate veins. There is a nasogastric tube with its tip in the stomac h. Lower neck: Negative Upper abdomen: Negative IMPRESSION: 1. Almost complete consolidation of the left upper lobe of the lung, with improved aeration of the l eft mid and lower lung zones. There is a moderate left-sided pleural effusion. Overall, there is mo derate improvement compared to chest CT 03/28/2017. This is consistent with pneumonia. 2. Small right-sided pleural effusion. 3. Clear right lung. 4. Endotracheal tube, left subclavian central venous catheter, and nasogastric tube in good position . Report Dictated By: Shane Mohan at 04/01/2017 3:35 PM Report E-Signed By: Shane Mohan at 04/01/2017 3:43 PM WSN:[email or web address]
[2017-04-02] VITALS (47 sets, daily range): BP systolic 109–151; BP diastolic 68–98
[2017-04-02] MEDS: PROPOFOL(*)1000 MG/100 ML VIAL 100 ML IV PRN ×8 (02:57→22:52)
[2017-04-02] MEDS: PIPERACILLIN/TAZO*3.375GM VIAL 3.375 GM in NS(*) 0.9% 100 ML ADDVANT BAG 100 ML IVPB SCH ×4 (03:02→20:16)
[2017-04-02] MEDS: MAGNESIUM CITRATE 300 ML BTL PO PRN ×2 (04:17→05:56)
[2017-04-02 05:46] LABS: PLATELET COUNT, AUTOMATED 194 K/uL (150-450)
--- NOTE | 2017-04-02 06:40 | RADIOLOGY IMAGING REPORT ---
FAC[place] [facility] [place]IENT NAME: Sylvia Blackwood : 1960 MR: [id number] V: [id number] EXAM DATE: ORDERING PHYSICIAN: ISAIAS DELAROSA TECHNOLOGIST: Location: [facility] - [place] Patient: Sylvia Blackwood : 1960 Visit/Account:[id number] Date of Sevice: 04/02/2017 Portable chest: Indication: Respiratory insufficiency. Technique: A single frontal film was obtained. Comparison: 04/01/2017 Lines and tubes: Remain in satisfactory position. Skeletal and soft tissue structures: Intact and unchanged. Heart and mediastinum: Stable. Lung laureano: Allowing for technical differences, there has been no significant change. Pleural spaces: Persistent left effusion. No evidence of pneumothorax. Impression: No significant change. Report Dictated By: Jin Arredondo MD at 04/02/2017 6:34 AM Report E-Signed By: Jin Arredondo MD at 04/02/2017 6:36 AM WSN:[id number]
[2017-04-02] MEDS ORDERED: BISACODYL 10 MG SUPP PR PRN (07:50)
[2017-04-02] MEDS ORDERED: FUROSEMIDE 40 MG/4 ML VIAL IVP ONE (08:25)
[2017-04-02] MEDS: PANTOPRAZOLE SOD 40 MG IV VIAL IVP SCH (08:50)
[2017-04-02] MEDS: ENOXAPARIN 40 MG/0.4ML SYR SC SCH (08:53)
[2017-04-02] MEDS: ORAL SUCTION/CHLORHX/SWAB KIT MT SCH ×2 (08:55→20:16)
[2017-04-02] MEDS: LEVOFLOXACIN/D5W 750 MG/150 ML 150 ML IVPB SCH (10:16)
--- NOTE | 2017-04-02 11:47 | Hospitalist Progress Note ---
Subjective Progress Notes Subjective He was admitted for pneumonia and respiratory failure. He had no acute events overnight. Patient Complains of: Cardiovascular: No: Chest Pain Respiratory: No: Shortness of Breath Physical Exam Vital Signs Date Time Temp Pulse Resp B/P (MAP) Pulse Ox O2 Delivery O2 Flow Rate FiO2 04/02/17 11:10 92 Mechanical Ventilator 50.0 04/02/17 10:30 71 19 122/73 (89) 04/02/17 10:00 98.8 04/01/17 20:20 Intake and Output 04/03/17 07:00 Intake Total 157.0 ml Output Total 1400 ml Balance -1243.0 ml Intake Oral 0 ml IV Total 127.0 ml Tube Irrigant 30 ml Output Urine Total 1400 ml Neuro: Other (Sedated, RASS -2) Cardiovascular: Normal Rhythm & Peripheral Pulses Respiratory: No Respiratory Distress, Other (Bilateral breath sounds present) Extremities: No Edema Integumentary: No Cyanosis Result Diagram: 04/02/17 0535 04/02/17 0535 Item Value Date Time Arterial Blood pH 7.40 04/02/17 0535 Arterial Blood Partial Pressure CO2 49 mmHg H 04/02/17 0535 Arterial Blood Partial Pressure O2 68 mmHg 04/02/17 0535 Item Value Date Time Sputum Culture - Final Complete 03/29/17 0812 Sputum Endotrach Aspirate NO GROWTH AFTER 2 DAYS Sputum Culture - Final Complete 03/29/17 0000 Sputum NO GROWTH AFTER 2 DAYS Body Fluid Culture - Final Complete 03/28/17 1716 Pleural Fluid No growth after 3 days Blood Culture - Preliminary Resulted 03/28/17 1316 Blood NO GROWTH AFTER 4 DAYS, REINCUBATED Blood Culture - Preliminary Resulted 03/28/17 1304 Blood NO GROWTH AFTER 4 DAYS, REINCUBATED Imaging Chest X-Ray reviewed. Assessment and Plan Problems: (1) Acute respiratory failure Status: Acute Assessment & Plan: He was intubated on 03/28. He is on propofol for sedation. He is tolerating SIMV fairly well, but has not been able to tolerate CPAP attempts. His respiratory acidosis has resolved and the ABG is consistent with chronic CO2 retention. His FiO2 requirement has decreased slowly. If he is unable to wean by early next week, we will need to consider tracheostomy and transfer to a higher level of care. (2) Postobstructive pneumonia Status: Acute Assessment & Plan: His chest CT has shown near complete obstruction of the left lung with a mass that is concerning for a malignancy with a component of postobstructive pneumonitis. He has been started on empiric treatment with levofloxacin and Zosyn. His cultures have been negative. Both of these are negative for malignancy. Dr. Sparks spoke with Dr. Guzman (Pulmonology) would agreed with the plan of care. Repeat CT scan showed increased aeration, but persistent infiltrates and mass. (3) Septic shock Status: Resolved Assessment & Plan: He did have an elevated WBC, elevated lactate, and required vasopressor support with norepinephrine for a short time. He was now weaned off vasopressor support and stress dose steroids have been stopped. (4) Acute renal failure Assessment & Plan: Resolved with hydration. (5) Lung mass Status: Acute Assessment & Plan: His CT scan has shown heterogeneous soft tissue attenuation in the central aspect of the left upper lobe extending to the hilum. At this point, we do not have a reasonable way to approach this for tissue biopsy. He may require transfer for definitive care. (6) Pleural effusion Status: Acute Assessment & Plan: Dr. Leonardo drained 1750cc on admission. Cytology didn't show any malignancy and culture has not had any growth. (7) Hyperkalemia Status: Resolved Assessment & Plan: Now resolved. (8) Type II diabetes mellitus Status: Chronic Assessment & Plan: His sugars have been stable on sliding scale level 2. Exam Sepsis Risk: No Definite Risk JONATHAN COHEN DO Apr 02, 2017 11:47
--- NOTE | 2017-04-02 12:07 | Antimicrobial Stewardship ---
Antimicrobial Stewardship MD Service: Hospitalist Indications: Other (Post obstructive pneumonia) Antimicrobial Allergies NKDA Antimicrobial History Started on Zosyn and Levofloxacin on admission Antimicrobial Used 03/29/17- Started levofloxacin (q25m--qtler function initially), and piperacillin /tazobactam Duration of Therapy: 7-10 Days (Plan to stop treatment on Wednesday 04/05- provided he is improving) Start Date: Mar 29, 2017 Height (Calculated Centimeters: 167.698113 Weight (Calculated Kilograms): 126.552 Creatinine Cl 04/02/17: CrCL~ 90 ml/min, Scr=1 Culture Results: Yes (03/28- pleural fluid (-), sputum (-), Blood Cx x 2 (-)) Recommendations re: Culture Cultures are all negative, continue broad spectrum antibiotics to complete course 7-10 days Improving WBC and Differential: Yes Eligable for PO Conversion: No Comments 56 yo M who presented to the ED with upper respiratory symptoms for 4 weeks, on his way through from [place], oxygen sats on admission 66%. CTA of the chest, show large mass compressing the left main bronchus with near complete consolidation of the left lung, negative PE. Pt was admitted with a post obstructive pneumonia, intubated secondary to respiratory failure. WBCs on admission were elevated, now within normal limits, pt has has been afebrile since admission 03/29/17 Sputum Cx (-) 03/28/17 Blood Cx x 2 (-) 03/28/17 Pleural fluid (-) 03/30/17 Pathology - bronchial biopsy-- atypia seen, (-) malignancy- recommend repeat sample Clinically improving based on presumptive pneumonia, post-obstructive pneumonia on Zosyn and Levofloxacin, continue through 04/05/17 to complete 7-10 day course. Jossy Moore, PharmD, BCOP JOSSY MOORE Apr 02, 2017 12:07
[2017-04-02] MEDS: INSULIN HUM LISPRO 100 UN/ML 3 ML VIAL SUBQ PRN ×2 (12:09→17:56)
[2017-04-02] MEDS ORDERED: ALBUTEROL/IPRATROPIUM 3 ML NEB NEB PRN (22:20)
[2017-04-03] VITALS (48 sets, daily range): BP systolic 117–151; BP diastolic 72–93
[2017-04-03] MEDS: PROPOFOL(*)1000 MG/100 ML VIAL 100 ML IV PRN ×9 (01:38→21:32)
[2017-04-03] MEDS: PIPERACILLIN/TAZO*3.375GM VIAL 3.375 GM in NS(*) 0.9% 100 ML ADDVANT BAG 100 ML IVPB SCH ×4 (02:32→20:16)
[2017-04-03] MEDS: NS(*) 0.9% 1000 ML BAG 1,000 ML IV PRN (03:50)
[2017-04-03 05:36] LABS: PLATELET COUNT, AUTOMATED 187 K/uL (150-450)
[2017-04-03] MEDS: INSULIN HUM LISPRO 100 UN/ML 3 ML VIAL SUBQ PRN ×4 (06:17→17:59)
--- NOTE | 2017-04-03 06:43 | RADIOLOGY IMAGING REPORT ---
FACILITY: [facility] PATIENT NAME: Sylvia Blackwood : 1960 MR: [id number] V: [id number] EXAM DATE: ORDERING PHYSICIAN: JONATHAN COHEN TECHNOLOGIST: Location: [facility] - [place] Patient: Sylvia Blackwood : 1960 Visit/Account:[id number] Date of Sevice: 04/03/2017 Abdomen: Indication: Constipation. Technique: Limited supine and views of the abdomen were obtained. Comparison: None. Findings: A nasogastric tube is present in the left upper quadrant. The intestinal gas pattern is unr emarkable, as visualized. There are no signs of focal dilatation or obstruction. The skeletal and sof t tissue structures appear unremarkable. IMPRESSION: Limited, but unremarkable study. Report Dictated By: Jin Arredondo MD at 04/03/2017 6:38 AM Report E-Signed By: Jin Arredondo MD at 04/03/2017 6:40 AM WSN:[id number]
--- NOTE | 2017-04-03 06:45 | RADIOLOGY IMAGING REPORT ---
[place] [facility] [place]IENT NAME: Sylvia Blackwood : 1960 MR: [id number] V: [id number] EXAM DATE: ORDERING PHYSICIAN: JONATHAN COHEN TECHNOLOGIST: Location: [facility] - [place] Patient: Sylvia Blackwood : 1960 Visit/Account:[id number] Date of Sevice: 04/03/2017 Portable chest: Indication: Respiratory insufficiency. Technique: A single frontal film was obtained. Comparison: 04/02/2017 Lines and tubes: Remain in satisfactory position. Skeletal and soft tissue structures: Intact and unchanged. Heart and mediastinum: Stable. Lung laureano: The bilateral parenchymal opacities are unchanged. No focal findings are identified. Pleural spaces: Persistent left effusion. No evidence of pneumothorax. Impression: No significant change. Report Dictated By: Jin Arredondo MD at 04/03/2017 6:40 AM Report E-Signed By: Jin Arredondo MD at 04/03/2017 6:41 AM WSN:[id number]
[2017-04-03] MEDS: PANTOPRAZOLE SOD 40 MG IV VIAL IVP SCH (08:48)
[2017-04-03] MEDS: ENOXAPARIN 40 MG/0.4ML SYR SC SCH (08:51)
[2017-04-03] MEDS: ORAL SUCTION/CHLORHX/SWAB KIT MT SCH ×2 (09:00→20:17)
--- NOTE | 2017-04-03 09:44 | Hospitalist Progress Note ---
Subjective Progress Notes Subjective Nursing staff notes the patient has not had a BM in 6 days. Physical Exam Vital Signs Date Time Temp Pulse Resp B/P (MAP) Pulse Ox O2 Delivery O2 Flow Rate FiO2 04/03/17 08:00 98.0 75 11 128/82 (97) 93 Mechanical Ventilator 50.0 04/03/17 04:09 15.0 Intake and Output 04/04/17 07:00 Intake Total 0 ml Balance 0 ml Intake Oral 0 ml # Bowel Movements 0 General Appearance: Other (The patient is intubated and sedated. He does move his toes some and occasional opens his eyes. ) Neuro: Other (Moves all 4 extremities intermittently.) Eyes: Other (Eyelids are swollen.) ENT: Other (ET tube in place.) Cardiovascular: Regular Rate and Rhythm Respiratory: Other (Bronchial breath sounds L lung anteriorly and medially. R lung with occasional wheeze anteriorly.) GI: Other (Distended. Nontender to palpation. No rebound or guarding. BS hypoactive.) Lymph: Cervical Nodes Benign Extremities: Warm, Perfused, Other (Trace edema. Chronic venous stasis changes noted.) Integumentary: Other (Chronic venous stasis changes. Tattoo L forearm.) Psych: Other (Unable to assess as he is sedated.) Result Diagram: 04/03/1751904/03/17519 Assessment and Plan Problems: (1) Acute respiratory failure Status: Acute Assessment & Plan: He was intubated on 03/28. He is on propofol for sedation. He is tolerating SIMV fairly well, but has not been able to tolerate CPAP attempts. His respiratory acidosis has resolved and the ABG is consistent with chronic CO2 retention. His FiO2 requirement has decreased slowly. If he is unable to wean by early next week, we will need to consider tracheostomy and transfer to a higher level of care. (2) Postobstructive pneumonia Status: Acute Assessment & Plan: His chest CT has shown near complete obstruction of the left lung with a mass that is concerning for a malignancy with a component of postobstructive pneumonitis. He has been started on empiric treatment with levofloxacin and Zosyn. His cultures have been negative. Bronchoscopy and thoracentesis have been performed. Pleural fluid cytology and bronchial washings have both been negative for malignancy. Dr. Sparks spoke with Dr. Guzman (Pulmonology) would agreed with the plan of care. Repeat CT scan showed increased aeration, but persistent infiltrates and mass. (3) Septic shock Status: Resolved Assessment & Plan: He did have an elevated WBC, elevated lactate, and required vasopressor support with norepinephrine for a short time. He was now weaned off vasopressor support and stress dose steroids have been stopped. (4) Acute renal failure Assessment & Plan: Resolved with hydration. (5) Lung mass Status: Acute Assessment & Plan: His CT scan has shown heterogeneous soft tissue attenuation in the central aspect of the left upper lobe extending to the hilum. At this point, we do not have a reasonable way to approach this for tissue biopsy. He will likely require transfer for definitive care. (6) Pleural effusion Status: Acute Assessment & Plan: Dr. Leonardo drained 1750cc on admission. Cytology didn't show any malignancy and culture has not had any growth. (7) Hyperkalemia Status: Resolved Assessment & Plan: Now resolved. (8) Type II diabetes mellitus Status: Chronic Assessment & Plan: His sugars have been stable on sliding scale level 2. (9) Constipation Status: Acute Assessment & Plan: The patient has not had a BM in 6 days. His appetite was poor prior to admission. He has been on TF since transfer to ICU. KUB this am is unremarkable. A bowel program has been started. Time Spent on Plan of Care: < 30 min Exam Sepsis Risk: No Definite Risk PAMELA ACEVES MD Apr 03, 2017 09:44
[2017-04-03] MEDS: LEVOFLOXACIN/D5W 750 MG/150 ML 150 ML IVPB SCH (10:27)
[2017-04-04] VITALS (23 sets, daily range): BP systolic 113–153; BP diastolic 68–85
[2017-04-04] MEDS: PROPOFOL(*)1000 MG/100 ML VIAL 100 ML IV PRN ×5 (00:03→09:12)
[2017-04-04] MEDS: PIPERACILLIN/TAZO*3.375GM VIAL 3.375 GM in NS(*) 0.9% 100 ML ADDVANT BAG 100 ML IVPB SCH ×2 (02:30→08:51)
--- NOTE | 2017-04-04 03:37 | RADIOLOGY IMAGING REPORT ---
FACILITY: [facility] PATIENT NAME: Sylvia Blackwood : 1960 MR: [id number] V: [id number] EXAM DATE: ORDERING PHYSICIAN: NHUNG ACEVES TECHNOLOGIST: Location: [facility] - [place], [place] Patient: Sylvia Blackwood : 1960 Visit/Account:[id number] Date of Sevice: 04/04/2017 Portable chest: Indication: Hypoxia. Technique: A single frontal film was obtained. Comparison: 04/03/2017 Lines and tubes: Remain in satisfactory position. Skeletal and soft tissue structures: Intact and unchanged. Heart and mediastinum: Stable. Lung laureano: There is persistent diffuse opacity in the left hemithorax, without significant change. The right lung remains grossly clear. Pleural spaces: No evidence of pneumothorax. Impression: No significant change. Report Dictated By: Jin Arredondo MD at 04/04/2017 3:33 AM Report E-Signed By: Jin Arredondo MD at 04/04/2017 3:35 AM WSN:[id number]
[2017-04-04 05:33] LABS: PLATELET COUNT, AUTOMATED 191 K/uL (150-450)
[2017-04-04] MEDS: INSULIN HUM LISPRO 100 UN/ML 3 ML VIAL SUBQ PRN (06:02)
--- NOTE | 2017-04-04 06:35 | Miscellaneous Provider Note ---
Miscellaneous Provider Note Note Called to see patient who was "crashing". Nursing staff had changed the bedding and with change of position the patient desaturated into the 50s and heart rate increased to the 130s. When I arrived at his room, sats were improving and he eventually returned to over 90%. Heart rate gradually improved as well. Repeat CXR showed ET tube to be in satisfactory position. PAMELA ACEVES MD Apr 04, 2017 06:35
[2017-04-04] MEDS ORDERED: BISACODYL 10 MG SUPP PR PRN (08:05)
[2017-04-04] MEDS: ENOXAPARIN 40 MG/0.4ML SYR SC SCH (08:50)
[2017-04-04] MEDS: PANTOPRAZOLE SOD 40 MG IV VIAL IVP SCH (08:51)
[2017-04-04] MEDS: ORAL SUCTION/CHLORHX/SWAB KIT MT SCH (08:51)
[2017-04-04] MEDS ORDERED: POLYETHYLENE GLYCOL 17 GM PKT PO SCH (09:00)
[2017-04-04] MEDS ORDERED: DOCUSATE SOD LIQ 100 MG/10 ML UDC PO SCH (09:00)
[2017-04-04] MEDS ORDERED: DOCUSATE SODIUM 100 MG CAP PO SCH (09:00)
[2017-04-04] MEDS: LEVOFLOXACIN/D5W 750 MG/150 ML 150 ML IVPB SCH (09:39)
[2017-04-04] MEDS ORDERED: IPRA3AMP21 NEB (10:06)
[2017-04-04] MEDS ORDERED: BISA10SU66 PR (10:06)
[2017-04-04] MEDS ORDERED: INSU100V24 SUBQ (10:06)
[2017-04-04] MEDS ORDERED: MAGN296S6 PO (10:06)
[2017-04-04] MEDS ORDERED: PANT40VI4 IVP (10:06)
[2017-04-04] MEDS ORDERED: DOCU50LI30 PO (10:06)
[2017-04-04] MEDS ORDERED: MOM PO (10:06)
[2017-04-04] MEDS ORDERED: ENOX40DI8 SC (10:06)
[2017-04-04] MEDS ORDERED: POLY17PO21 PO (10:06)
--- NOTE | 2017-04-04 10:40 | Hospitalist Depart ---
Discharge Summary Reason for Hosp/Final Diag: (1) Acute respiratory failure Status: Acute Hospital Course & Plan: He was intubated on 03/28 secondary to respiratory distress from post-obstructive pneumonia. He is on propofol for sedation. His respiratory acidosis has resolved and the ABG is consistent with chronic CO2 retention. His FiO2 requirement initially improved from 80% to 50% over the first few days in the ICU, but hasn't improved since then. He has had plateau pressures in the mid 20's, consistently. He desaturations when lying flat or positioned and it can minutes to improve. He is not having much secretions from the ET tube. He is currently on SIMV with a rate of 12, Vt 500, PS 20, PEEP 5, FiO2 50%. He is over breathing the ventilator to a rate of 18 and has spontaneous volumes of about 450cc. The patient hasn't tolerated attempts to remove the respiratory rate with PS/PEEP only settings. He immediately desaturates. He is tolerating tube feedings fairly well. He is on Lovenox and Protonix. (2) Postobstructive pneumonia Status: Acute Hospital Course & Plan: His chest CT has shown near complete obstruction of the left lung with a mass that is concerning for a malignancy with a component of postobstructive pneumonitis. He was started on empiric treatment with levofloxacin and Zosyn. His cultures have been negative. Dr. Leonardo did a thoracentesis on 03/28 and drained 1750cc from the left lung and a bronchoscopy on 03/29 and did a biopsy with lung washings. Both of these are negative for malignancy. Dr. Delarosa spoke with Dr. Guzman (Pulmonology) on 03/30 and agreed with the plan of care, but recommended transfer if the patient plateaus. Repeat CT on 04/01, showed better aeration of lower lobe and decreased pleural effusion with near complete consolidation of the upper lobe consistent with pneumonia. Because of the lack of improvement, the tenuous nature of the patient with any positioning, and the lack of speciality care at our hospital; the patient will be transferred to [facility] and Dr. Yun is the accepting physician. The patient's son, Kasandra, is in agreement with the plan. (3) Septic shock Status: Resolved Hospital Course & Plan: He did have an elevated WBC, elevated lactate, and required vasopressor support with norepinephrine for a short time. He was weaned off vasopressor support and stress dose steroids have been stopped. (4) Acute renal failure Hospital Course & Plan: Resolved with hydration. (5) Lung mass Status: Acute Hospital Course & Plan: His, initial, CT scan had shown heterogeneous soft tissue attenuation in the central aspect of the left upper lobe extending to the hilum. The repeat CT, didn't make mention of the mass. Bronchoscopy didn' t show an obvious mass, but airway narrowing. Because of the lack of speciality care, he is being transferred for further evaluation of a possible mass. (6) Pleural effusion Status: Acute Hospital Course & Plan: Dr. Leonardo drained 1750cc on admission. Cytology didn't show any malignancy and culture has not had any growth. Dr. Leonardo didn't want to place a chest tube at admission because of concern of difficulty removing it secondary to a possible post-obstructive pneumonia. However, the patient might benefit from placement, but will defer to the providers at [facility]. (7) Hyperkalemia Status: Resolved Hospital Course & Plan: Now resolved. (8) Type II diabetes mellitus Status: Chronic Hospital Course & Plan: Glucose 154-181 in the last 24 hours. He is getting glucose checks q6 hours and getting coverage with SSI. (9) Constipation Status: Acute Hospital Course & Plan: The patient has not had a BM in 7 days. His appetite was poor prior to admission. He has been on TF since transfer to ICU. KUB yesterday was unremarkable. He has received Magnesium Citrate, Dulcolax suppository and MOM without result. Now on scheduled Miralax and Docusate. Departure Weight (Pounds): 280 Weight (Ounces): 2.0 Result Diagram: 04/04/1751404/04/17514 Item Value Date Time Sodium Level 135 mmol/L L 03/28/17 1304 Potassium Level 5.3 mmol/L H 03/28/17 1304 Chloride Level 94 mmol/L L 03/28/17 1304 Carbon Dioxide Level 29 mmol/L 03/28/17 1304 Blood Urea Nitrogen 39 mg/dl H 03/28/17 1304 Creatinine 1.70 mg/dl H 03/28/17 1304 Glomerular Filtration Rate Calc 41.9 03/28/17 1304 Random Glucose 242 mg/dl H 03/28/17 1304 Calcium Level 9.7 mg/dl 03/28/17 1304 Lactate 3.4 mmol/L H 03/28/17 1304 Total Bilirubin 0.8 mg/dl 03/28/17 1304 Aspartate Amino Transf (AST/SGOT) 20 U/L 03/28/17 1304 Alanine Aminotransferase (ALT/SGPT) 39 U/L 03/28/17 1304 Alkaline Phosphatase 110 U/L 03/28/17 1304 Troponin I 0.019 ng/ml 03/28/17 1304 B-Type Natriuretic Peptide 84 pg/ml 03/28/17 1304 Total Protein 6.8 gm/dl 03/28/17 1304 Albumin 3.5 g/dl 03/28/17 1304 Lactate 1.2 mmol/L 03/28/17 2032 Whole Blood Glucose 146 mg/DL H 03/28/17 2055 Whole Blood Glucose 134 mg/DL H 03/29/17 0414 Random Glucose 146 mg/dl H 03/29/17 0548 Whole Blood Glucose 185 mg/DL H 03/29/17 1134 Calcium Level 8.7 mg/dl 03/29/17 0548 Total Bilirubin 1.0 mg/dl 03/29/17 0548 Aspartate Amino Transf (AST/SGOT) 19 U/L 03/29/17 0548 Alanine Aminotransferase (ALT/SGPT) 36 U/L 03/29/17 0548 Alkaline Phosphatase 83 U/L 03/29/17 0548 Sodium Level 136 mmol/L L 03/29/17 0548 Potassium Level 5.3 mmol/L H 03/29/17 0548 Chloride Level 95 mmol/L L 03/29/17 0548 Carbon Dioxide Level 32 mmol/L H 03/29/17 0548 Blood Urea Nitrogen 43 mg/dl H 03/29/17 0548 Creatinine 2.30 mg/dl H 03/29/17 0548 Total Protein 5.7 gm/dl L 03/29/17 0548 Albumin 2.8 g/dl L 03/29/17 0548 Sodium Level 137 mmol/L 03/30/17 0520 Potassium Level 4.5 mmol/L 03/30/17 0520 Chloride Level 98 mmol/L 03/30/17 0520 Carbon Dioxide Level 31 mmol/L H 03/30/17 0520 Blood Urea Nitrogen 32 mg/dl H 03/30/17 0520 Creatinine 1.50 mg/dl H 03/30/17 0520 Glomerular Filtration Rate Calc 48.4 03/30/17 0520 Random Glucose 249 mg/dl H 03/30/17 0520 Calcium Level 8.2 mg/dl L 03/30/17 0520 Total Bilirubin 0.8 mg/dl 03/30/17 0520 Aspartate Amino Transf (AST/SGOT) 15 U/L 03/30/17 0520 Alanine Aminotransferase (ALT/SGPT) 32 U/L 03/30/17 0520 Alkaline Phosphatase 72 U/L 03/30/17 0520 Sodium Level 136 mmol/L L 03/31/17 0605 Potassium Level 4.2 mmol/L 03/31/17 0605 Chloride Level 99 mmol/L 03/31/17 0605 Carbon Dioxide Level 31 mmol/L H 03/31/17 0605 Blood Urea Nitrogen 27 mg/dl H 03/31/17 0605 Creatinine 1.20 mg/dl 03/31/17 06 Glomerular Filtration Rate Calc > 60.0 03/31/17 0605 Random Glucose 277 mg/dl H 03/31/17 0605 Calcium Level 7.8 mg/dl L 03/31/17 0605 Total Bilirubin 0.4 mg/dl 03/31/17 0605 Aspartate Amino Transf (AST/SGOT) 10 U/L 03/31/17 0605 Alanine Aminotransferase (ALT/SGPT) 25 U/L 03/31/17 0605 Alkaline Phosphatase 68 U/L 03/31/17 0605 Albumin 2.5 g/dl L 03/31/17 0605 Total Protein 5.1 gm/dl L 03/31/17 0605 Blood Urea Nitrogen 27 mg/dl H 04/01/17 0458 Creatinine 1.10 mg/dl 04/01/17 0458 Random Glucose 246 mg/dl H 04/01/17 0458 Carbon Dioxide Level 34 mmol/L H 04/02/17 0535 Blood Urea Nitrogen 26 mg/dl H 04/02/17 0535 Creatinine 1.10 mg/dl 04/02/17 0535 Random Glucose 153 mg/dl H 04/02/17 0535 Carbon Dioxide Level 31 mmol/L H 04/03/17 0520 Blood Urea Nitrogen 25 mg/dl H 04/03/17 0520 Creatinine 1.10 mg/dl 04/03/17 0520 Random Glucose 171 mg/dl H 04/03/17 0520 Carbon Dioxide Level 32 mmol/L H 04/04/17 0515 Blood Urea Nitrogen 23 mg/dl H 04/04/17 0515 Creatinine 1.10 mg/dl 04/04/17 0515 Calcium Level 7.8 mg/dl L 04/04/17 0515 Total Bilirubin 0.8 mg/dl 04/04/17 0515 Aspartate Amino Transf (AST/SGOT) 25 U/L 04/04/17 0515 Alanine Aminotransferase (ALT/SGPT) 46 U/L 04/04/17 0515 Alkaline Phosphatase 69 U/L 04/04/17 0515 Random Glucose 177 mg/dl H 04/04/17 0515 Albumin 2.7 g/dl L 04/04/17 0515 Total Protein 5.7 gm/dl L 04/04/17 0515 White Blood Count 10.8 k/uL 03/28/17 1304 White Blood Count 15.0 k/uL H 03/29/17 0548 White Blood Count 10.6 k/uL 03/30/17 0520 Hemoglobin 19.1 g/dL H 03/28/17 1304 Hemoglobin 18.1 g/dL H 03/29/17 0548 Hemoglobin 17.2 g/dL 03/30/17 0520 Platelet Count 283 K/uL 03/28/17 1304 Platelet Count 271 K/uL 03/29/17 0548 Platelet Count 218 K/uL 03/30/17 0520 Mean Corpuscular Volume 88.7 fL 03/28/17 1304 Mean Corpuscular Volume 90.3 fL 03/29/17 0548 Mean Corpuscular Volume 88.5 fL 03/30/17 0520 Neutrophils (%) (Auto) 75.5 % H 03/28/17 1304 Neutrophils (%) (Auto) 81.6 % H 03/29/17 0548 Neutrophils (%) (Auto) 91.6 % H 03/30/17 0520 Neutrophils (%) (Auto) 89.8 % H 03/31/17 0605 Neutrophils (%) (Auto) 80.4 % H 04/01/17 0458 Neutrophils (%) (Auto) 76.3 % H 04/02/17 0535 Neutrophils (%) (Auto) 78.1 % H 04/03/17 0520 Neutrophils (%) (Auto) 80.6 % H 04/04/17 0515 White Blood Count 7.7 k/uL 04/04/17 0515 White Blood Count 6.8 k/uL 04/03/17 0520 White Blood Count 6.4 k/uL 04/02/17 0535 White Blood Count 8.5 k/uL 04/01/17 0458 White Blood Count 9.8 k/uL 03/31/17 0605 Hemoglobin 16.7 g/dL 03/31/17 0605 Hemoglobin 16.8 g/dL 04/01/17 0458 Hemoglobin 16.5 g/dL 04/02/17 0535 Hemoglobin 16.5 g/dL 04/03/17 0520 Hemoglobin 16.5 g/dL 04/04/17 0515 Platelet Count 191 K/uL 04/04/17 0515 Platelet Count 187 K/uL 04/03/17 0520 Platelet Count 194 K/uL 04/02/17 0535 Platelet Count 225 K/uL 04/01/17 0458 Platelet Count 223 K/uL 03/31/17 0605 D-Dimer Quantitative (PE/DVT) 1.03 ug/ml H 03/28/17 1304 Arterial Blood pH 7.43 04/04/17 0515 Arterial Blood Partial Pressure CO2 51 mmHg *H 04/04/17 0515 Arterial Blood Partial Pressure O2 67 mmHg 04/04/17 0515 Arterial Blood HCO3 34 mmol/L H 04/04/17 0515 Arterial Blood Oxygen Saturation 93 % 04/04/17 0515 Arterial Blood pH 7.15 *L 03/28/17 06 Arterial Blood Partial Pressure CO2 > 90 mmHg *H 03/28/17 0600 Arterial Blood Partial Pressure O2 75 mmHg 03/28/17 06 Arterial Blood HCO3 36 mmol/L H 03/28/17 0600 Arterial Blood Oxygen Saturation 90 % L 03/28/17 0600 Arterial Blood Base Excess 7.0 mmol/L 03/28/17 0600 Arterial Blood pH 7.18 *L 03/28/172229 Arterial Blood Partial Pressure CO2 > 90 mmHg *H 03/28/17 223 Arterial Blood Partial Pressure O2 73 mmHg 03/28/17 223 Arterial Blood HCO3 36 mmol/L H 03/28/17 223 Arterial Blood Oxygen Saturation 87 % L 03/28/17 2230 Arterial Blood Base Excess 8.0 mmol/L 03/28/17 2230 Arterial Blood Base Excess 7.0 mmol/L 03/29/17 0810 Arterial Blood Oxygen Saturation 94 % 03/29/17 0810 Arterial Blood HCO3 34 mmol/L H 03/29/17 0810 Arterial Blood Partial Pressure O2 86 mmHg H 03/29/17 0810 Arterial Blood Partial Pressure CO2 78 mmHg *H 03/29/17 0810 Arterial Blood pH 7.25 L 03/29/17 0810 Arterial Blood pH 7.36 03/30/17 0535 Arterial Blood Partial Pressure CO2 57 mmHg *H 03/30/17 0535 Arterial Blood Partial Pressure O2 75 mmHg 03/30/17 0535 Arterial Blood HCO3 32 mmol/L H 03/30/17 0535 Arterial Blood Base Excess 7.0 mmol/L 03/30/17 0535 Arterial Blood Oxygen Saturation 94 % 03/30/17 0535 Arterial Blood pH 7.40 03/31/17 0500 Arterial Blood Partial Pressure CO2 51 mmHg *H 03/31/17 0500 Arterial Blood Partial Pressure O2 74 mmHg 03/31/17 0500 Arterial Blood HCO3 31 mmol/L H 03/31/17 0500 Arterial Blood Oxygen Saturation 94 % 03/31/17 0500 Arterial Blood Base Excess 7.0 mmol/L 03/31/17 0500 Arterial Blood pH 7.40 04/01/17 0504 Arterial Blood Partial Pressure CO2 48 mmHg H 04/01/17 0504 Arterial Blood Partial Pressure O2 79 mmHg 04/01/17 0504 Arterial Blood HCO3 30 mmol/L H 04/01/17 0504 Arterial Blood Oxygen Saturation 96 % 04/01/17 0504 Arterial Blood Base Excess 5.0 mmol/L 04/01/17 0504 Arterial Blood Base Excess 6.0 mmol/L 04/02/17 0535 Arterial Blood Oxygen Saturation 93 % 04/02/17 0535 Arterial Blood HCO3 31 mmol/L H 04/02/17 0535 Arterial Blood Partial Pressure O2 68 mmHg 04/02/17 0535 Arterial Blood Partial Pressure CO2 49 mmHg H 04/02/17 0535 Arterial Blood pH 7.40 04/02/17 0535 Arterial Blood pH 7.46 H 04/03/17 0520 Arterial Blood Partial Pressure CO2 43 mmHg H 04/03/17 0520 Arterial Blood Partial Pressure O2 59 mmHg L 04/03/17 0520 Arterial Blood HCO3 31 mmol/L H 04/03/17 0520 Arterial Blood Oxygen Saturation 92 % 04/03/17 0520 Arterial Blood Base Excess 7.0 mmol/L 04/03/17 0520 Oxygen Liters/Minute 50% fio2 04/04/17 0515 Oxygen Liters/Minute 50% fio2 04/03/17 0520 Oxygen Liters/Minute 50% fio2 04/02/17 0535 Oxygen Liters/Minute 50% 04/01/17 0504 Oxygen Liters/Minute 55% 03/31/17 0500 Oxygen Liters/Minute 80%vent 03/29/17 0810 Oxygen Liters/Minute 35% 03/28/17 0600 Oxygen Liters/Minute 60% 03/30/17 0535 Influenza Virus Type A (PCR) Negative 03/28/17 1304 Influenza Virus Type B (PCR) Negative 03/28/17 1304 No growth from blood cultures x2 or pleural fluid on 03/28/17. No growth from endotracheal secretions from 03/29/17. Imaging Too numerous to mention. See the hospital records for details. EKG Vent. Rate : 117 BPM Atrial Rate : 117 BPM P-R Int : 104 ms QRS Dur : 098 ms QT Int : 444 ms P-R-T Axes : 000 123 050 degrees QTc Int : 619 ms Sinus tachycardia Right axis deviation Incomplete right bundle branch block Right ventricular hypertrophy Abnormal ECG No previous ECGs available Confirmed by GUY ROMAN ([id number]) on 03/28/2017 8:20:09 PM Condition: Critical Discharge: Other Facility Discharge Instructions Home Meds Active Scripts Polyethylene Glycol 3350 (POLYETHYLENE GLYCOL 3350) 17 Gm Powd.pack, 17 GM PO QDAY for 1 Day, Prov:ISAIAS DELAROSA MD 04/04/17 Pantoprazole Sodium (PROTONIX IV) 40 Mg Vial, 40 MG IVP Q24H for 1 Day, VIAL Prov:ISAIAS DELAROSA MD 04/04/17 Magnesium Hydroxide (MILK OF MAGNESIA) 400 Mg/5 Ml Oral.susp, 30 ML PO QDAY Y for CONSTIPATION for 1 Day, Prov:ISAIAS DELAROSA MD 04/04/17 Magnesium Citrate (MAGNESIUM CITRATE) 296 Ml Solution, 300 ML PO PRN Y for constipation for 1 Day, Prov:ISAIAS DELAROSA MD 04/04/17 Insulin Lispro (HUMALOG) 100 Unit/1 Ml Vial, 2-10 UNIT SUBQ SS Y for SLIDING SCALE INSULIN for 1 Day, VIAL Prov:ISAIAS DELAROSA MD 04/04/17 Ipratropium/Albuterol Sulfate (IPRAT-ALBUT 0.5-3(2.5) MG/3 ML) 3 Ml Ampul.neb, 3 ML NEB QIDR Y for SHORTNESS OF BREATH for 1 Day, Prov:ISAIAS DELAROSA MD 04/04/17 Docusate Sodium (DOCU LIQUID) 50 Mg/5 Ml Liquid, 100 MG PO BID for 1 Day, Prov:ISAIAS DELAROSA MD 04/04/17 Bisacodyl (BISAC-EVAC) 10 Mg Supp.rect, 10 MG AR QDAY Y for CONSTIPATION for 1 Day, SUPP.RECT Prov:ISAIAS DELAROSA MD 04/04/17 Enoxaparin Sodium (LOVENOX) 40 Mg/0.4 Ml Disp.syrin, 40 MG SC Q24H for 1 Day, Prov:ISAIAS DELAROSA MD 04/04/17 Copies to: ENMANUEL YUN MD Venous Thromboembolism Antithrombotics Is Pt On Any Antithrombotics?: No ISAIAS DELAROSA MD Apr 04, 2017 10:40
--- NOTE | 2017-04-04 10:43 | Medical Nutrition Therapy ---
Nutrition Anthropometrics Height (Inches): 66.00 Height (Calculated Centimeters: 167.982733 Weight (Pounds): 280 Weight (Calculated Kilograms): 127.063 BMI Calculated: 42.77 Hx Weight Loss: Yes (Pt stated wt. loss over past 4 wks but not sure how much) Velasquez Nutrition Score: Adequate Velasquez Nutrition Risk Score: 15 Dietary Referral Nutrition Risk Factors: Mech. Ventilated Nutrition Risk Comment: Physical Findings Physical Appearance: Morbidly Obese 40+ Skin Appearance Skin Appearance: Edema Edema Location Modifier: Both Edema Location: Generalized Type of Edema: Degree of Edema: 1+ Gastrointestinal Symptoms GI Symtoms: Constipation Tube Present: OG Bowel Sounds: Recent Bowel Pattern: Diarrhea Stool Characteristics: Nutritional Diagnosis Nutritional Risk Acuity 1: Pulm Fail Vent Nutritional Risk Acuity 2: Pr Appetite > 3d, Tube Feed Stable, Sepsis Nutritional Risk Acuity 3: Morbid Obesity Nutritional Acuity: 1-High Nutrition Diagnosis: Increased Nutrient Needs, Inablility to Feed Self Nutrition Etiology: Physiological Causes Nutrition Problem/Etiology/Sym: Increased nutr needs, inablitiy to feed self related respiratory failure and mechanical vent AEB NPO with TF. Energy Requirement: 2355 ([place] x1.2 AF) Protein Requirement: 75 (1.1g/kg of IBW) Fluid Requirement: 2400 (20 mL/kg) Diet Type: NPO (Nothing by Mouth), Tube Feeding (TF) Nutrition Intervention: Nutrition support, Incr diet as tolerated Nutritional Support Current Enteral / Parental: Tube Feeding Tube Feeding Formulas: Specialty Formula (Promote) Tube Feeding Supplement Streng: Full Feeding Route: FT Placed Oralgastric Rate: 50mL/hr/24hr Current Calories: 1200 (promote) Current Protein: 75 Current Lipids Calories: 950 (propofol at 36mls/hr) Total Current Calories: 2150 Recommended Tube Feeding Formu: Promote Nutrition Monitoring & Eval Nutritional Goals Comment: enteral nutrition will meet nutr needs until oral intake can meet nutr needs. RD Patient Assessment Time: [address] Assessment Type: RD Re-Assessment Patient Nutrition Acuity: 1-High Follow Up Date: Apr 07, 2017 Nutritional Comment: Pt. admitted for increased SOB. Stated having noticed wt. loss over the past 4 weeks but cannot qualify how much. Has a hx of HTN, T2 DM, takes metformin. 03/28) Pt was placed on mech. vent. for resp. failure. Currently receiving 436 kcal from propofol. 03/29) Glu 185,K+ 5.3, Na 136, Cre 2.3, Alb 2.8. 03/29) 15:00 Current tube feeding is providing 2035 kcal and 85 g of protein meeting 86% of energy and protein needs. Due to patients BMI in class 3 obesity range and overfeeding is not desired continue rec plan of care. Fluid needs should be met with current tube feeding and IV fluids. 03/30) Pt remains on mech vent. TF orders of Glucerna final rate of 80mL/hr/24hr and propofol 36.06 mL/hr will provide 2850 kcals and 80 g of protein. Final rate will meet 122% of calorie needs and 106% of protein needs. Pt has moderate residuals, tolerating feeding fair. RD recs TF formula change to Promote. Propofol @ 36.06mL/hr and Promote @ 50mL/hr/24hr will provide a total of 2150 kcals/day. Which will meet 100% of protein needs and 91% of calorie needs. Labs: 03/30) Glu 188, Alb 2.6, Ca 8.2, Cre 1.5 Meds:Lispro. 03/30) wt 268#, 4# increase since 03/29. 04/01) Pt. tolerating current TF well, moderate residuals. 03/31) WBG 117, Random Glu 246, Ca 7.5, Alb 2.7 Will continue to monitor TF tolerance and residuals, wt and labs 04/04 Pt cont on mech vent with TF of Promote at 50ml/hr and Propofol curretnly at 36mls/hr curretnly meeting 92% est kcal and 100% est protein needs. BMI is in class 3 obestiy range with goal not to overfeed kcal with TF. Wt is up 15# since admission however pt also has non pitting generalized edeam and 1+ pitting edema LE. Alb 2.7. ARF has resolved. BIN 32, creatinine 1.1. BG has ranged 130's -180's past 3 days. Will cont to monitor. RADHA MCGOWAN Apr 04, 2017 10:43
== END 2017-04-04 11:15 | disposition short-term general hospital (02) | DRG 853 ==
LOC: ER 12:50 → MED 17:04 → ICU 22:40
PROVIDERS: ADMIT Internal Medicine; ATTEND Internal Medicine
PROC: 0W9B3ZX Drainage of Left Pleural Cavity, Percutaneous Approach, Diagnostic (ICD-10-PCS; 2017-03-28)
PROC: 5A1955Z Respiratory Ventilation, Greater than 96 Consecutive Hours (ICD-10-PCS; 2017-03-28)
PROC: 0BH18EZ Insertion of Endotracheal Airway into Trachea, Via Natural or Artificial Opening Endoscopic (ICD-10-PCS; 2017-03-28)
PROC: 0BD98ZX Extraction of Lingula Bronchus, Via Natural or Artificial Opening Endoscopic, Diagnostic (ICD-10-PCS; 2017-03-29)
PROC: 02HV33Z Insertion of Infusion Device into Superior Vena Cava, Percutaneous Approach (ICD-10-PCS; 2017-03-29)
PROC: 0BCL8ZZ Extirpation of Matter from Left Lung, Via Natural or Artificial Opening Endoscopic (ICD-10-PCS; principal; 2017-03-29 16:35)
PROC: 0BB98ZX Excision of Lingula Bronchus, Via Natural or Artificial Opening Endoscopic, Diagnostic (ICD-10-PCS; 2017-03-29 16:35)
DX: A41.9 Sepsis, unspecified organism (principal); J96.02 Acute respiratory failure with hypercapnia; J18.9 Pneumonia, unspecified organism; R65.21 Severe sepsis with septic shock; N17.9 Acute kidney failure, unspecified; J91.8 Pleural effusion in other conditions classified elsewhere; J44.0 Chronic obstructive pulmonary disease with (acute) lower respiratory infection; R91.8 Other nonspecific abnormal finding of lung field; E87.5 Hyperkalemia; E11.65 Type 2 diabetes mellitus with hyperglycemia; K59.00 Constipation, unspecified; I10 Essential (primary) hypertension; F17.210 Nicotine dependence, cigarettes, uncomplicated; Z79.84 Long term (current) use of oral hypoglycemic drugs; Z89.022 Acquired absence of left finger(s)
CPT/HCPCS: 36415; 36416; 36600; 71045; 71046; 71270; 71275; 74018; 82040; 82247; 82310; 82374; 82435; 82565; 82803; 82947; 82948; 83605; 83880; 84075; 84132; 84155; 84295; 84450; 84460; 84484; 84520; 85025; 85379; 87040; 87070; 87071; 87502; 88104; 88305; 93005; 94002; 94003; 94640; 94770; 96360; 96361; 99285; C1758; C9113; J0171; J0330; J1650; J1720; J1940; J1956; J2001; J2250; J2370; J2543; J2704; J3010; J3490; J7030; J7050; J7060; Q9967

== ENCOUNTER → 2017-04-04 | Outpatient (CLI) | payer BC ==
[2017-03-29 09:37] VITALS: BMI 42.8
[~2017-04-04] MED LIST: BISA10SU66 PR; DOCU50LI30 PO; ENOX40DI8 SC; INSU100V24 SUBQ; IPRA3AMP21 NEB; MAGN296S6 PO; MOM PO; PANT40VI4 IVP; POLY17PO21 PO
== END ==
LOC: AMB 10:44
PROVIDERS: ATTEND Nurse Practitioner
DX: J96.90 Respiratory failure, unspecified, unspecified whether with hypoxia or hypercapnia (principal); Z99.11 Dependence on respirator [ventilator] status
CPT/HCPCS: A0425; A0434